=== PATIENT | female | born 1950 | race Caucasian/White ===

== ENCOUNTER 2016-08-15 07:32 | Emergency (ER) | payer MEDICARE, BC ==
[2016-08-15] MEDS ORDERED: Sodium Chloride 0.9% 10 ML Syringe FLUSH PRN (07:53)
[2016-08-15] MEDS ORDERED: Diltiazem 25 MG/5 ML SDV IVPUSH ONE ×2 (07:54→11:12)
[2016-08-15] MEDS: Sodium Chloride 0.9% 1,000 ML IV SCH ×2 (07:55→10:22)
--- NOTE | 2016-08-15 08:00 | EDM.PDOC ---
ED HISTORY OF PRESENT ILLNESS - General Chief Complaint: Cardiovascular Problem Stated Complaint: RAPID HEART RATE Time Seen by Provider: 08/15/16 07:52 Source: Reports: Patient History Limitations: Reports: No limitations - History of Present Illness INITIAL COMMENTS - FREE TEXT/NARRATIVE: This lady comes to the hospital complaining of a rapid heart rate and palpitations. This morning she was taking her usual morning thyroid medication and she got a little bit choked and it caused her to cough. Immediately afterward she noticed that her heart rate was going really fast. She denies any chest pain and there is no shortness of breath. She does not have a history of atrial flutter ablation or other heart problems although many years ago she had some episodes of flutters and had to wear a monitor but she said that her doctor told her that it was nothing to worry about and it seemed to go away. She has an underactive thyroid and the thyroid supplement is the only medication she takes. She has no reasons to be dehydrated such as vomiting or diarrhea. She doesn't use any [id number] medications no street drugs and no alcohol. - Related Data Allergies/ADRs: Allergies Allergy/AdvReac Type Severity Reaction Status Date / Time adhesive Allergy Itching Verified 08/15/16 07:36 Home Meds: Home Meds Aspirin [Ecotrin] 1 tab PO BEDTIME 08/15/16 [History] Calcium Carbonate [Calcium] 2 tab PO BID 08/15/16 [History] Ergocalciferol (Vitamin D2) [Vitamin D2] 1 tab PO DAILY 08/15/16 [History] Fish Oil/[place]-3 Fatty Acids [Fish Oil 1,000 MG] 1 tab PO DAILY 08/15/16 [ History] Lactobacillus Acidophilus [Probiotic] 1 tab PO BID 08/15/16 [History] Levothyroxine 1 tab PO DAILY 08/15/16 [History] Multivitamin [Multivitamins] 1 tab PO DAILY 08/15/16 [History] Ubiquinol 1 tab PO DAILY 08/15/16 [History] 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 GI Surgical History: Reports: Appendectomy Female Surgical History: Reports: section, Hysterectomy Musculoskeletal Surgical History: Reports: Knee replacement Social & Family History - Tobacco Use Smoking Status *Q: Never Smoker - Recreational Drug Use Recreational Drug Use: No ED ROS GENERAL - Review of Systems Review Of Systems: See Below Constitutional: Reports: no symptoms HEENT: Reports: No symptoms Respiratory: Reports: No Symptoms Cardiovascular: Reports: Palpitations Endocrine: Reports: no symptoms GI/Abdominal: Reports: No symptoms : Reports: no symptoms ED EXAM, GENERAL - Physical Exam Exam: See Below Exam Limited By: No limitations General Appearance: alert, no apparent distress, obese Eye Exam: bilateral eye: normal inspection Ears: normal external exam Throat/Mouth: Normal inspection Respiratory/Chest: no respiratory distress, lungs clear Cardiovascular: regular rate, rhythm, no murmur, tachycardia Peripheral Pulses: 1+: radial (L), radial (R) GI/Abdominal: non tender Extremities: no pedal edema Neurological: alert, oriented, normal cognition Psychiatric: normal affect Skin Exam: Warm, Dry Course - Vital Signs Last Recorded V/S: Last Vital Signs Temp 36.4 C 08/15/16 07:36 Pulse 78 08/15/16 15:21 Resp 15 08/15/16 11:40 BP 116/65 08/15/16 15:21 Pulse Ox 93 L 08/15/16 15:21 - Orders/Labs/Meds Orders: Active Orders 24 hr Category Date Time Status EKG Documentation Completion [RC] ASDIRECTED Care 08/15/16 07:53 Active EKG Documentation Completion [RC] ASDIRECTED Care 08/15/16 11:31 Active EKG Documentation Completion [RC] ASDIRECTED Care 08/15/16 15:39 Active Sodium Chloride 0.9% [Normal Saline] 1,000 ml Med 08/15/16 08:00 Active IV ASDIRECTED Sodium Chloride 0.9% [Saline Flush] Med 08/15/16 07:53 Active 10 ml FLUSH ASDIRECTED PRN Saline Lock Insert [OM.PC] Urgent Oth 08/15/16 07:52 Ordered EKG 12 Lead [EK] Routine Ther 08/15/16 15:38 Ordered EKG 12 Lead [EK] Urgent Ther 08/15/16 07:52 Ordered EKG 12 Lead [EK] Urgent Ther 08/15/16 11:31 Ordered Medication Orders Sodium Chloride (Normal Saline) 1,000 mls @ 500 mls/hr IV ASDIRECTED MARTHA Last Admin: 08/15/16 10:22 Dose: 500 mls/hr Infusion: 08/15/16 09:55 Dose: 500 mls/hr Admin: 08/15/16 07:55 Dose: 500 mls/hr Sodium Chloride (Saline Flush) 10 ml FLUSH ASDIRECTED PRN PRN Reason: Keep Vein Open Last Admin: 08/15/16 07:57 Dose: 10 ml Labs: Laboratory Tests 08/15/16 08/15/16 08/15/16 Range/Units 08:01 08:01 08:01 WBC 5.7 (4.5-11.0) K/uL RBC 5.24 (3.30-5.50) M/uL Hgb 15.5 H (12.0-15.0) g/dL Hct 45.4 (36.0-48.0) % MCV 87 (80-98) fL MCH 30 (27-31) pg MCHC 34 (32-36) % Plt Count 244 (150-400) K/uL Neut % (Auto) 64 (36-66) % Lymph % (Auto) 22 L (24-44) % [place] % (Auto) 11 H (2-6) % Eos % (Auto) 3 (2-4) % Baso % (Auto) 1 (0-1) % Sodium 143 (140-148) mmol/L Potassium 3.9 (3.6-5.2) mmol/L Chloride 106 (100-108) mmol/L Carbon Dioxide 28 (21-32) mmol/L Anion Gap 8.9 (5.0-14.0) mmol/L BUN 20 H (7-18) mg/dL Creatinine 0.9 (0.6-1.0) mg/dL Est Cr Clr Drug Dosing 56.00 mL/min Estimated GFR (MDRD) > 60 (>60) Glucose 126 H (74-106) mg/dL Calcium 9.3 (8.5-10.1) mg/dL Total Bilirubin 0.5 (0.2-1.0) mg/dL AST 17 (15-37) U/L ALT 25 (12-78) U/L Alkaline Phosphatase 61 (46-116) U/L Troponin I < 0.017 (0.000-0.056) ng/mL Total Protein 7.3 (6.4-8.2) g/dL Albumin 3.7 (3.4-5.0) g/dL Globulin 3.6 H (2.3-3.5) g/dL Albumin/Globulin Ratio 1.0 L (1.2-2.2) Free T4 1.58 H (0.76-1.46) ng/dL TSH, Ultra Sensitive 0.098 L (0.358-3.740) uIU/mL Meds: Medications Generic Name Dose Route Start Last Admin Trade Name Freq PRN Reason Stop Dose Admin Sodium Chloride 1,000 mls @ 500 mls/hr 08/15/16 08:00 08/15/16 10:22 Normal Saline IV 500 mls/hr ASDIRECTED MARTHA Administration Sodium Chloride 10 ml 08/15/16 07:53 08/15/16 07:57 Saline Flush FLUSH 10 ml ASDIRECTED PRN Administration Keep Vein Open Discontinued Medications Generic Name Dose Route Start Last Admin Trade Name Freq PRN Reason Stop Dose Admin Diltiazem HCl 25 mg 08/15/16 07:54 08/15/16 08:06 Diltiazem IVPUSH 08/15/16 07:55 25 mg ONETIME ONE Administration Diltiazem HCl 30 mg 08/15/16 09:48 08/15/16 09:54 Cardizem PO 08/15/16 09:49 30 mg ONETIME ONE Administration Diltiazem HCl 25 mg 08/15/16 11:12 08/15/16 11:18 Diltiazem IVPUSH 08/15/16 11:13 25 mg ONETIME ONE Administration Diltiazem HCl 30 mg 08/15/16 11:31 08/15/16 11:51 Cardizem PO 08/15/16 11:32 30 mg ONETIME ONE Administration Metoprolol Tartrate 5 mg 08/15/16 13:42 08/15/16 13:58 Lopressor IVPUSH 08/15/16 13:43 5 mg ONETIME ONE Administration Metoprolol Tartrate 5 mg 08/15/16 14:08 08/15/16 14:20 Lopressor IVPUSH 08/15/16 14:09 5 mg ONETIME ONE Administration - Re-Assessments/Exams Free Text/Narrative Re-Assessment/Exam: 08/15/16 07:59 Index initial EKG shows a narrow complex tachycardia at 145 beats per minute. It is regular and no P waves are seen. Free Text/Narrative Re-Assessment/Exam: 08/15/16 09:50 This lady received diltiazem 25 mg IV. The heart rate promptly slowed down to the 80-100 beats per minute range. It's clearly in atrial fibrillation. Repeat EKG confirms this. Labs show a slightly elevated T4 and a low TSH indicating an over abundance of the thyroid replacement hormone. I spoke with Dr. Sharp and he agrees with the plan to discharge her on some oral diltiazem. He will follow her up in clinic early next week and if she is still in atrial fibrillation then he will anticoagulate her and decide on further management. Dr. Sharp would like her Synthroid cut back to 100 mcg daily I discussed with the patient the side effects of diltiazem such as hypotension and bradycardia. If on the other hand she begins having more tachycardia and certainly if she had any chest pain or shortness of breath she needs to return to the emergency department 08/15/16 14:50 This patient had been given 30 mg of diltiazem at approximately 945. We observed her after this and eventually her heart rate went back up to about 150 so we gave her another 25 mg dose of IV diltiazem and another 30 of oral diltiazem. To continue to observe her but it looked like that was not going to work and her heart rate eventually went back up to about 150. Spoke with [address] Miller and he recommended that since this was probably due to her thyroid medication the metoprolol might be a better choice. Patient was given 25 mg IV doses and her heart rate slowed down into the 80s but we've subsequently noticed some pauses up to about 2 seconds so we're observing this and will make a decision on treating her with low-dose metoprolol outpatient or admitting her. 08/15/16 15:40 08/15/16 15:43 She converted to normal sinus rhythm. An EKG was done that shows sinus rhythm at 56 beats per minute. There is a loss of R-wave height on the 2 which was seen on the earlier EKGs today also. This could represent an old anteroseptal AK. There is nothing to suggest this is an acute AK. She had a troponin earlier today which was negative. I don't believe there is any need to do another troponin. Her vital signs are stable and I think she is ready to be discharged home. I don't believe there is any reason to send her out on any other medications. I spoke with her about checking her pulse and if she does note some increased heart rate and she should seek care either through her Dr. or return to the ER. She should plan to followup with Dr. Sharp next week as planned Departure - Departure Time of Disposition: 09:55 Disposition: Home, Self-Care 01 Condition: fair Clinical Impression: Atrial fibrillation with rapid ventricular response Referrals: Poli Sharp MD [Primary Care Provider] - Forms: ED Department Discharge Additional Instructions: Take the new lower dose of thyroid replacement, Synthroid or levothyroxine 100 mcg daily. If you notice your heart rate getting really fast again and certainly if you had chest pain or shortness of breath you need to be seen in the emergency room right away. Dr. Sharp would like to see you in clinic early next week. Your heart rhythm has converted to a normal sinus rhythm. Check pulse frequently it should be in the range of about 60-90. If you noticed it is getting well above 100 such as the 130 to 150 where it was today then you need to be seen in the ER again. - My Orders Last 24 Hours: My Active Orders 08/15/16 07:52 Saline Lock Insert [OM.PC] Urgent EKG 12 Lead [EK] Urgent 08/15/16 07:53 EKG Documentation Completion [RC] ASDIRECTED Sodium Chloride 0.9% [Saline Flush] 10 ml FLUSH ASDIRECTED PRN 08/15/16 08:00 Sodium Chloride 0.9% [Normal Saline] 1,000 ml IV ASDIRECTED 08/15/16 11:31 EKG Documentation Completion [RC] ASDIRECTED EKG 12 Lead [EK] Urgent 08/15/16 15:38 EKG 12 Lead [EK] Routine 08/15/16 15:39 EKG Documentation Completion [RC] ASDIRECTED - Assessment/Plan Last 24 Hours: My Active Orders 08/15/16 07:52 Saline Lock Insert [OM.PC] Urgent EKG 12 Lead [EK] Urgent 08/15/16 07:53 EKG Documentation Completion [RC] ASDIRECTED Sodium Chloride 0.9% [Saline Flush] 10 ml FLUSH ASDIRECTED PRN 08/15/16 08:00 Sodium Chloride 0.9% [Normal Saline] 1,000 ml IV ASDIRECTED 08/15/16 11:31 EKG Documentation Completion [RC] ASDIRECTED EKG 12 Lead [EK] Urgent 08/15/16 15:38 EKG 12 Lead [EK] Routine 08/15/16 15:39 EKG Documentation Completion [RC] ASDIRECTED
[2016-08-15] MEDS ORDERED: Diltiazem IR 30 MG Tab PO ONE ×2 (09:48→11:31)
--- NOTE | 2016-08-15 09:55 | CR ---
Chest 1V Frontal HISTORY: No Clinical Info FINDINGS: Heart size within normal limits. Pulmonary vasculature within normal limits. No evidence f or focal consolidation or cardiopulmonary process. IMPRESSION: No radiographic evidence for acute cardiopulmonary process.
[2016-08-15] MEDS ORDERED: Metoprolol Tartrate 5 MG/5 ML SDV IVPUSH ONE ×2 (13:42→14:08)
[2016-08-15 15:39] VITALS: BP 116/65
== END 2016-08-15 16:11 | disposition home or self-care (01) ==
LOC: JP.ED 07:32
DX: I48.91 Unspecified atrial fibrillation (principal); E03.9 Hypothyroidism, unspecified; Z90.49 Acquired absence of other specified parts of digestive tract; Z90.710 Acquired absence of both cervix and uterus; Z79.899 Other long term (current) drug therapy; Z91.09 Other allergy status, other than to drugs and biological substances; Z79.82 Long term (current) use of aspirin
CPT/HCPCS: 36415; 71010; 80053; 84439; 84443; 84484; 85025; 93005; 96361; 96374; 96375; 96376; 99284; A9270; J7040; J7050; 93010; 99285; J3490

== ENCOUNTER 2019-07-09 21:03 | Inpatient (IN) | payer MEDICARE, OTHER ==
[2019-07-09] MEDS ORDERED: Sodium Chloride 0.9% 10 ML Syringe FLUSH PRN (21:24)
[2019-07-09] MEDS ORDERED: Diltiazem 25 MG/5 ML SDV IVPUSH ONE ×2 (21:25→23:11)
--- NOTE | 2019-07-09 21:28 | EDM.PDOC ---
ED HPI GENERAL MEDICAL PROBLEM - General Chief Complaint: Cardiovascular Problem Stated Complaint: A-FIB Time Seen by Provider: 07/09/19 21:27 Source of Information: Reports: Patient History Limitations: Reports: No Limitations - History of Present Illness INITIAL COMMENTS - FREE TEXT/NARRATIVE: pt arrived in atrial fib with a rate in the 130 range. Onset: Today, Sudden Duration: Hour(s): Location: Reports: Chest Associated Symptoms: Reports: Shortness of Breath, Other (pt has no chest pain) - Related Data Allergies Allergy/AdvReac Type Severity Reaction Status Date / Time adhesive Allergy Itching Verified 07/09/19 21:22 Home Meds: Home Meds Aspirin [Ecotrin EC] 1 tab PO BEDTIME 08/15/16 [History] Calcium Carbonate [Calcium] 2 tab PO BID 08/15/16 [History] Ergocalciferol (Vitamin D2) [Vitamin D2] 1 tab PO DAILY 08/15/16 [History] Fish Oil/[place]-3 Fatty Acids [Fish Oil 1,000 MG] 1 tab PO DAILY 08/15/16 [ History] Lactobacillus Acidophilus [Probiotic] 1 tab PO BID 08/15/16 [History] Levothyroxine 1 tab PO DAILY 08/15/16 [History] Multivitamin [Multivitamins] 1 tab PO DAILY 08/15/16 [History] Ubiquinol 1 tab PO DAILY 08/15/16 [History] Metoprolol Tartrate 25 mg PO BID 07/09/19 [History] 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: Endocrine/Metabolic History: Reports: Hypothyroidism Oncologic (Cancer) History: Reports: Uterine - Past Surgical History HEENT Surgical History: Reports: Other (See Below) GI Surgical History: Reports: Appendectomy Female Surgical History: Reports: Section, Hysterectomy Musculoskeletal Surgical History: Reports: Knee Replacement ED ROS GENERAL - Review of Systems Review Of Systems: See Below Constitutional: Reports: No Symptoms HEENT: Reports: No Symptoms Respiratory: Reports: No Symptoms Cardiovascular: Reports: Palpitations Endocrine: Reports: No Symptoms GI/Abdominal: Reports: No Symptoms : Reports: No Symptoms Musculoskeletal: Reports: No Symptoms Skin: Reports: No Symptoms Neurological: Reports: No Symptoms Psychiatric: Reports: No Symptoms ED EXAM, GENERAL - Physical Exam Exam: See Below Free Text/Narrative:: pt arrived with a rapid rhythm in atrial fib. She has not had chest pain. She did have atrial fib mid Jun and ended up being hospitalized at that time. She was converted with meds. Exam Limited By: No Limitations General Appearance: Alert, No Apparent Distress, Anxious, Other (pt has had slight dizziness. ) Ears: Normal TMs Nose: Normal Inspection Throat/Mouth: Normal Inspection Head: Atraumatic Neck: Normal Inspection Respiratory/Chest: No Respiratory Distress Cardiovascular: Irregularly Irregular, Other ( rate is 140) GI/Abdominal: Soft, Non-Tender Rectal (Female) Exam: Deferred Back Exam: Normal Inspection Extremities: Normal Inspection Neurological: Alert, Oriented, Normal Cognition Course - Vital Signs Last Recorded V/S: Last Vital Signs Temp 36.2 C 07/10/19 08:00 Pulse 78 07/10/19 08:00 Resp 18 07/10/19 08:00 BP 107/68 07/10/19 08:00 Pulse Ox 91 L 07/10/19 08:00 - Orders/Labs/Meds Labs: Laboratory Tests 07/09/19 07/09/19 07/09/19 Range/Units 21:39 21:39 21:39 WBC 9.4 (4.5-11.0) K/uL RBC 5.27 (3.30-5.50) M/uL Hgb 15.5 H (12.0-15.0) g/dL Hct 47.1 (36.0-48.0) % MCV 89 (80-98) fL MCH 29 (27-31) pg MCHC 33 (32-36) % Plt Count 234 (150-400) K/uL Neut % (Auto) 62 (36-66) % Lymph % (Auto) 26 (24-44) % [place] % (Auto) 9 H (2-6) % Eos % (Auto) 2 (2-4) % Baso % (Auto) 0 (0-1) % Sodium 143 (140-148) mmol/L Potassium 4.0 (3.6-5.2) mmol/L Chloride 106 (100-108) mmol/L Carbon Dioxide 27 (21-32) mmol/L Anion Gap 10.3 (5.0-14.0) mmol/L BUN 23 H (7-18) mg/dL Creatinine 1.0 (0.6-1.0) mg/dL Est Cr Clr Drug Dosing 48.30 mL/min Estimated GFR (MDRD) 55 L (>60) Glucose 164 H (74-106) mg/dL Calcium 9.6 (8.5-10.1) mg/dL Total Bilirubin 0.3 (0.2-1.0) mg/dL AST 17 (15-37) U/L ALT 29 (12-78) U/L Alkaline Phosphatase 103 (46-116) U/L Troponin I < 0.017 (0.000-0.056) ng/mL Total Protein 7.5 (6.4-8.2) g/dL Albumin 3.7 (3.4-5.0) g/dL Globulin 3.8 H (2.3-3.5) g/dL Albumin/Globulin Ratio 1.0 L (1.2-2.2) TSH, Ultra Sensitive (0.358-3.740) uIU/mL Urine Color (YELLOW) Urine Appearance (CLEAR) Urine pH (5.0-8.0) Ur Specific [place] (1.008-1.030) Urine Protein (NEGATIVE) mg/dL Urine Glucose (UA) (NEGATIVE) mg/dL Urine Ketones (NEGATIVE) mg/dL Urine Occult Blood (NEGATIVE) Urine Nitrite (NEGATIVE) Urine Bilirubin (NEGATIVE) Urine Urobilinogen (0.2-1.0) EU/dL Ur Leukocyte Esterase (NEGATIVE) Urine RBC (0-5) Urine WBC (0-5) Ur Epithelial Cells Amorphous Sediment Urine Bacteria Urine Mucus 07/09/19 07/09/19 Range/Units 21:39 22:56 WBC (4.5-11.0) K/uL RBC (3.30-5.50) M/uL Hgb (12.0-15.0) g/dL Hct (36.0-48.0) % MCV (80-98) fL MCH (27-31) pg MCHC (32-36) % Plt Count (150-400) K/uL Neut % (Auto) (36-66) % Lymph % (Auto) (24-44) % [place] % (Auto) (2-6) % Eos % (Auto) (2-4) % Baso % (Auto) (0-1) % Sodium (140-148) mmol/L Potassium (3.6-5.2) mmol/L Chloride (100-108) mmol/L Carbon Dioxide (21-32) mmol/L Anion Gap (5.0-14.0) mmol/L BUN (7-18) mg/dL Creatinine (0.6-1.0) mg/dL Est Cr Clr Drug Dosing mL/min Estimated GFR (MDRD) (>60) Glucose (74-106) mg/dL Calcium (8.5-10.1) mg/dL Total Bilirubin (0.2-1.0) mg/dL AST (15-37) U/L ALT (12-78) U/L Alkaline Phosphatase (46-116) U/L Troponin I (0.000-0.056) ng/mL Total Protein (6.4-8.2) g/dL Albumin (3.4-5.0) g/dL Globulin (2.3-3.5) g/dL Albumin/Globulin Ratio (1.2-2.2) TSH, Ultra Sensitive 0.998 (0.358-3.740) uIU/mL Urine Color Yellow (YELLOW) Urine Appearance Clear (CLEAR) Urine pH 7.5 (5.0-8.0) Ur Specific [place] 1.020 (1.008-1.030) Urine Protein Negative (NEGATIVE) mg/dL Urine Glucose (UA) Negative (NEGATIVE) mg/dL Urine Ketones Negative (NEGATIVE) mg/dL Urine Occult Blood Negative (NEGATIVE) Urine Nitrite Negative (NEGATIVE) Urine Bilirubin Negative (NEGATIVE) Urine Urobilinogen 0.2 (0.2-1.0) EU/dL Ur Leukocyte Esterase Negative (NEGATIVE) Urine RBC 0-5 (0-5) Urine WBC 0-5 (0-5) Ur Epithelial Cells Rare Amorphous Sediment Not seen Urine Bacteria Rare Urine Mucus Not seen Meds: Medications Discontinued Medications Generic Name Dose Route Start Last Admin Trade Name Freq PRN Reason Stop Dose Admin Acetaminophen 650 mg 07/09/19 23:50 Tylenol PO Q4H PRN Pain Apixaban 5 mg 07/10/19 09:00 Eliquis PO BID MARTHA Aspirin 81 mg 07/10/19 21:00 Halfprin PO BEDTIME MARTHA Diltiazem HCl 10 mg 07/09/19 21:25 07/09/19 21:41 Diltiazem IVPUSH 07/09/19 21:26 10 mg ONETIME ONE Administration Diltiazem HCl 10 mg 07/09/19 23:11 07/09/19 23:16 Diltiazem IVPUSH 07/09/19 23:12 10 mg ONETIME ONE Administration Diltiazem HCl 100 mg/ Sodium 100 mls @ 5 mls/hr 07/09/19 21:30 07/10/19 02:10 Chloride IV 7 mg/hr TITRATE MARTHA 7 mls/hr Titration Protocol 5 MG/HR Levothyroxine Sodium 100 mcg 07/10/19 07:30 07/10/19 09:12 Synthroid PO 100 mcg ACBREAKFAST MARTHA Administration Levothyroxine Sodium 25 mcg 07/10/19 07:30 07/10/19 09:12 Levothyroxine PO 25 mcg ACBREAKFAST MARTHA Administration Metoprolol Tartrate 25 mg 07/10/19 09:00 07/10/19 09:14 Lopressor PO Not Given BID MARTHA Propofol Confirm 07/10/19 08:54 Diprivan 20 Ml Administered 07/10/19 08:55 Dose 200 mg .ROUTE .STK-MED ONE Sodium Chloride 10 ml 07/09/19 21:24 07/09/19 21:45 Saline Flush FLUSH 10 ml ASDIRECTED PRN Administration Keep Vein Open Warfarin Sodium 5 mg 07/09/19 22:36 07/09/19 22:54 Coumadin PO 07/09/19 22:37 Not Given ONETIME ONE - Re-Assessments/Exams Free Text/Narrative Re-Assessment/Exam: 07/09/19 22:24 pt has normal labs and she has a chest xray which has no acute changes. Her bs is 164. She was given cardizem 10 mg iv and then a drip was started. Her rate has come down to 110 instead of 130. Departure - Departure Time of Disposition: 22:26 Disposition: Admitted As Inpatient 64 Condition: Fair Clinical Impression: Atrial fibrillation with rapid ventricular response Sepsis Event Note - Focused Exam Date Exam was Performed: 07/11/19 Time Exam was Performed: 07:24
[2019-07-09] MEDS ORDERED: Diltiazem 100 MG in Sodium Chloride 0.9% 100 ML IV SCH (21:30)
[2019-07-09] MEDS ORDERED: Warfarin 5 MG Tab PO ONE (22:36)
[2019-07-09] MEDS ORDERED: Acetaminophen 325 MG Tab PO PRN (23:50)
--- NOTE | 2019-07-10 01:39 | HP ---
IDENTIFYING DATA: Sammy Acharya is a 69-year-old female from [facility]. CHIEF COMPLAINT: Atrial fibrillation. HISTORY OF PRESENT ILLNESS: This adult female with a history of hypertension has an accompanying history of recognized intermittent paroxysmal atrial fibrillation with rapid ventricular response. She was hospitalized for a brief stay at [facility] in [place] 2 weeks ago with similar episode converting with pharmacologic therapies and subsequently being discharged to home. She had a 2nd episode in the remote past, converting back to a presumptive normal sinus rhythm spontaneously. She has had no history of syncope or near syncope. Denies loss of consciousness. No history of ME, chest pain, or angina-like pain. She reports she was seated on the couch this evening folding laundry when she suddenly noted the onset of irregular cardiac palpitations suspecting atrial fibrillation. Her transported her to the emergency room. Again, she has had no dizziness, lightheadedness, syncope, near syncope, chest pain, or shortness of breath. She is a nonsmoker. Uses no alcohol or caffeinated beverages. No other stimulant therapy noted. She does have a history of hypothyroidism with recent TSH noted to be within normal range on levothyroxine replacement therapy. She uses no [id number] stimulants including decongestant agents. She did have an echocardiogram completed earlier this week for completion of evaluation of her recent episode of AFib. She was noted to have normal cardiac valve function, mild concentric hypertrophy of the left ventricle with a well- maintained ejection fraction. She had no reports of atrial enlargement noted. She is currently on aspirin, anti-platelet therapies. She is not on additional anticoagulant therapy. PAST MEDICAL HISTORY: History of hypertension, hypothyroidism, and intermittent atrial fibrillation. PREVIOUS SURGERIES: Include delivery, total knee arthroplasty, hysterectomy, and appendectomy in the remote past. ALLERGIES: NOTED TO ADHESIVE TAPE. MEDICATIONS: Metoprolol tartrate 25 mg b.i.d., multivitamin 1 daily, digestive enzymes 1 capsule daily, levothyroxine 137 mcg daily, aspirin 81 mg daily, Ubiquinol 100 mg daily, omega-3 fatty fish oil capsule 1200 mg daily, calcium 500 mg with vitamin D 125 units 2 tablets daily, probiotics 1 capsule b.i.d. Has received her annual influenza vaccine. Tetanus status is current and up to date. FAMILY HISTORY: No familial history of similar rhythm occurrence. SOCIAL HISTORY: Resides with her in their [place] [facility] residence. She engages in light physical activity with use of a treadmill on a daily basis. Engages in household activities. Performs ADLs independently. Drives without difficulty. REVIEW OF SYSTEMS: NEUROLOGIC: No history of stroke, seizures, or paresthesias. No history of glaucoma. Hearing is intact. CARDIAC: As above. RESPIRATORY: No history of asthma, emphysema, cough, sputum production, tuberculosis, or recent URIs. GI: No history of hepatitis, jaundice, chronic dyspepsia, nausea, emesis, or bowel changes. : No urinary incontinence. No nocturia noted by the patient. MUSCULOSKELETAL: Arthralgias with shoulder pain of rotator cuff disease and degenerative arthritis of the knees. PHYSICAL EXAMINATION: GENERAL: Appearance is that of an adult female, now resting comfortably in hospital bed. INITIAL VITALS: Temperature 36.2 degrees centigrade, pulse 142 with atrial fibrillation and rapid ventricular rate noted by cardiac monitoring, respiratory rate 18, blood pressure 152/75, O2 sats 94% on room air. With initiation of IV diltiazem, heart rate has slowed to 90s to 105 with persistent atrial fibrillation. HEENT: Pupils reactive to light. Sclerae anicteric. Hearing is grossly intact with normal canals. No facial asymmetries. No oropharyngeal lesions. No perioral cyanosis. NECK: Brisk irregular carotid pulses. No JVD or bruits. LUNGS: Symmetrical, clear, nontachypneic. HEART: Irregularly irregular, controlled rate. No murmurs or gallops noted. ABDOMEN: Obese, soft, and nontender. No organomegaly. Active sounds. Good femoral pulses. No bruits. No CVA pain. EXTREMITIES: Chronic mild pitting edema of the lower extremities. Good arterial pulses. SKIN: Warm, pink, and dry. LABORATORY DATA: On admission, WBC 9.4, hemoglobin 15.5, platelet count 234,000. Sodium 143, potassium 4, BUN 23, creatinine 1, GFR 55. Glucose 164, calcium 9.6. Liver functions within normal range. Troponin less than 0.017. TSH within therapeutic range at 0.998. IMPRESSION: 1. Paroxysmal atrial fibrillation with rapid ventricular rate. 2. History of hypertension. 3. History of hypothyroidism with levothyroxine replacement therapy. PLAN: The patient will be admitted to the ICU for continued cardiac monitoring. We will maintain on oral metoprolol and IV diltiazem drip initiated in the emergency room. Additionally, will initiate anticoagulant therapy with oral Eliquis while continuing with aspirin, antiplatelet therapies as well. A.m. troponin is requested. If she has evidence of ischemic chest pain or decompensation with suggestion of acute congestive heart failure, will treat aggressively with cardioversion. If she fails to convert with pharmacologic therapies overnight, consider consult for cardioversion on 07/10/2019. We will continue with long-term anticoagulant therapy. Additionally, in light of recurring AFib, also will pursue Cardiology consultation to discuss optimal management of recurrent AFib, be it ongoing pharmacologic therapy or EP studies and cardioablative procedure. Riley Sharp MD /[id number]
--- NOTE | 2019-07-10 06:41 | PN ---
DATE OF SERVICE: 07/10/2019 IDENTIFYING DATA: A 69-year-old female with a history of paroxysmal atrial fibrillation, was admitted in the late evening hours with recurrent cardiac dysrhythmia, noting subjective palpitations. Initial rates in the 130s with variable rhythm were identified. Additional ER evaluation was otherwise unremarkable. She has had no chest pain, no syncope, dizziness, or shortness of breath. In addition to her standard maintenance oral metoprolol, she was placed on IV diltiazem and admitted to the ICU overnight for ongoing observation. She has not slept. Denies discomfort with the exception of transient aching at the left shoulder, noting a history of a rotator cuff tear. She is now comfortable. No shortness of breath noted. OBJECTIVE: VITAL SIGNS: Heart rate varies from 70s to 120s with irregularity and atrial fibrillation noted by monitoring, respiratory rate 15, O2 sats 93% with supplemental oxygen at 1 L, blood pressure 118/54. NECK: Brisk and regular carotid pulses. No stridor. LUNGS: Clear. HEART: Remains irregularly irregular. No murmurs or gallops noted. EXTREMITIES: Warm, pink, and dry. IMPRESSION AND PLAN: Paroxysmal atrial fibrillation, persistently maintained regular cardiac dysrhythmia. We will continue with IV diltiazem and oral metoprolol. Anticoagulation with Eliquis has been ordered. Followup troponin this morning is pending. We will consult Hospitalist Service to discuss candidacy for cardioversion and then discuss further patient's outpatient arrangements for Cardiology followup and consultation to review possible candidacy for EP studies and cardio-ablative procedure. Continue to monitor in ICU setting in the interim. Riley Sharp MD /[id number]
[2019-07-10] MEDS ORDERED: Levothyroxine 100 MCG Tab PO SCH (07:30)
[2019-07-10] MEDS ORDERED: Levothyroxine 25 MCG Tab PO SCH (07:30)
[2019-07-10 08:28] VITALS: BP 107/68; PULSE 78
[2019-07-10] MEDS ORDERED: Propofol 200 MG/20 ML SDV ONE (08:54)
[2019-07-10] MEDS ORDERED: LEVOTHYROXINE PO SCH (09:00)
[2019-07-10] MEDS ORDERED: Apixaban 5 MG Tab PO SCH (09:00)
[2019-07-10] MEDS ORDERED: Metoprolol Tartrate 25 MG Tab PO SCH (09:00)
--- NOTE | 2019-07-10 09:29 | PCM.DCSUM1 ---
Discharge Summary - Hospital Course Brief History: Ms. Acharya is a 69-year-old woman who was admitted through the emergency department with palpitations secondary to atrial fibrillation with rapid ventricular response. - Discharge Data Discharge Date: 07/10/19 Discharge Disposition: Home, Self-Care 01 Condition: Stable - Referral to Home Health Primary Care Physician: Poli Sharp MD - Discharge Diagnosis/Problem(s) (1) Hypertension SNOMED Code(s): 47448494 ICD Code: I10 - ESSENTIAL (PRIMARY) HYPERTENSION Status: Acute Current Visit: Yes (2) Atrial fibrillation with rapid ventricular response SNOMED Code(s): 536673971369217 ICD Code: I48.91 - UNSPECIFIED ATRIAL FIBRILLATION Status: Acute Current Visit: Yes - Patient Summary/Data Hospital Course: Ms. Acharya is a 69-year-old woman who was admitted through the emergency department by Dr. Sharp with palpitations secondary to atrial fibrillation with rapid ventricular response. She has had a previous episode of atrial fibrillation with rapid ventricular response 2 to 3 weeks ago and 1 previous episode occurring approximately 2 years ago. During the last episode she converted spontaneously to sinus rhythm. She was sitting on the couch when she noted onset of a rapid irregular rhythm and was brought into the emergency department by her . EKG and telemetry monitoring confirmed atrial fibrillation with rapid ventricular response. She was given a bolus dose of IV diltiazem and started on a continuous infusion of IV diltiazem. With these interventions rate became well controlled. Initial troponin level and follow- up troponin level have been within normal range. She had no associated symptoms with the atrial fibrillation other than noted the rapid rhythm. She had converted spontaneously this morning to sinus rhythm. She has a calculated [id number] score of 3. We discussed the recommendation for anticoagulation today did recommend that she begin anticoagulation. She stands that she is at increased risk for stroke based on her chads score, but would like to wait until she sees the rail car operator to discuss this further. TSH level is within normal range, echocardiogram was obtained as an outpatient yesterday and the results are pending at this time. Activity will be as tolerated and she will remain on a heart healthy diet. Follow-up appointment will be scheduled with Dr. Sharp in 1 week. She reports to me that she does have a pending appointment with cardiology. - Patient Instructions Diet: Heart Healthy Diet Activity: As Tolerated Other/Special Instructions: Please schedule follow-up appointment with primary care provider within 1 week. - Discharge Plan *PRESCRIPTION DRUG MONITORING PROGRAM REVIEWED*: Not Applicable *COPY OF PRESCRIPTION DRUG MONITORING REPORT IN PATIENT CRISTIAN: Not Applicable Home Medications: Home Meds Aspirin [Ecotrin EC] 1 tab PO BEDTIME 08/15/16 [History] Calcium Carbonate [Calcium] 2 tab PO BID 08/15/16 [History] Ergocalciferol (Vitamin D2) [Vitamin D2] 1 tab PO DAILY 08/15/16 [History] Fish Oil/[place]-3 Fatty Acids [Fish Oil 1,000 MG] 1 tab PO DAILY 08/15/16 [ History] Lactobacillus Acidophilus [Probiotic] 1 tab PO BID 08/15/16 [History] Levothyroxine 1 tab PO DAILY 08/15/16 [History] Multivitamin [Multivitamins] 1 tab PO DAILY 08/15/16 [History] Ubiquinol 1 tab PO DAILY 08/15/16 [History] Metoprolol Tartrate 25 mg PO BID 07/09/19 [History] Referrals: Poli Sharp MD [Primary Care Provider] - - Discharge Summary/Plan Comment DC Time >30 min.: No - Patient Data Vitals - Most Recent: Last Vital Signs Temp 97.2 F 07/10/19 08:00 Pulse 78 07/10/19 08:00 Resp 18 07/10/19 08:00 BP 107/68 07/10/19 08:00 Pulse Ox 91 L 07/10/19 08:00 Weight - Most Recent: 261 lb I&O - Last 24 hours: Intake & Output 07/09/19 07/10/19 07/10/19 22:59 06:59 14:59 Intake Total 506 Output Total 225 Balance 281 Lab Results - Last 24 hrs: Laboratory Results - last 24 hr 07/09/19 07/09/19 07/09/19 Range/Units 21:39 21:39 21:39 WBC 9.4 (4.5-11.0) K/uL RBC 5.27 (3.30-5.50) M/uL Hgb 15.5 H (12.0-15.0) g/dL Hct 47.1 (36.0-48.0) % MCV 89 (80-98) fL MCH 29 (27-31) pg MCHC 33 (32-36) % Plt Count 234 (150-400) K/uL Neut % (Auto) 62 (36-66) % Lymph % (Auto) 26 (24-44) % [place] % (Auto) 9 H (2-6) % Eos % (Auto) 2 (2-4) % Baso % (Auto) 0 (0-1) % Sodium 143 (140-148) mmol/L Potassium 4.0 (3.6-5.2) mmol/L Chloride 106 (100-108) mmol/L Carbon Dioxide 27 (21-32) mmol/L Anion Gap 10.3 (5.0-14.0) mmol/L BUN 23 H (7-18) mg/dL Creatinine 1.0 (0.6-1.0) mg/dL Est Cr Clr Drug Dosing 48.30 mL/min Estimated GFR (MDRD) 55 L (>60) Glucose 164 H (74-106) mg/dL Calcium 9.6 (8.5-10.1) mg/dL Magnesium (1.8-2.4) mg/dL Total Bilirubin 0.3 (0.2-1.0) mg/dL AST 17 (15-37) U/L ALT 29 (12-78) U/L Alkaline Phosphatase 103 (46-116) U/L Troponin I < 0.017 (0.000-0.056) ng/mL Total Protein 7.5 (6.4-8.2) g/dL Albumin 3.7 (3.4-5.0) g/dL Globulin 3.8 H (2.3-3.5) g/dL Albumin/Globulin Ratio 1.0 L (1.2-2.2) TSH, Ultra Sensitive (0.358-3.740) uIU/mL Urine Color (YELLOW) Urine Appearance (CLEAR) Urine pH (5.0-8.0) Ur Specific [place] (1.008-1.030) Urine Protein (NEGATIVE) mg/dL Urine Glucose (UA) (NEGATIVE) mg/dL Urine Ketones (NEGATIVE) mg/dL Urine Occult Blood (NEGATIVE) Urine Nitrite (NEGATIVE) Urine Bilirubin (NEGATIVE) Urine Urobilinogen (0.2-1.0) EU/dL Ur Leukocyte Esterase (NEGATIVE) Urine RBC (0-5) Urine WBC (0-5) Ur Epithelial Cells Amorphous Sediment Urine Bacteria Urine Mucus 07/09/19 07/09/19 07/10/19 Range/Units 21:39 22:56 06:02 WBC (4.5-11.0) K/uL RBC (3.30-5.50) M/uL Hgb (12.0-15.0) g/dL Hct (36.0-48.0) % MCV (80-98) fL MCH (27-31) pg MCHC (32-36) % Plt Count (150-400) K/uL Neut % (Auto) (36-66) % Lymph % (Auto) (24-44) % [place] % (Auto) (2-6) % Eos % (Auto) (2-4) % Baso % (Auto) (0-1) % Sodium (140-148) mmol/L Potassium (3.6-5.2) mmol/L Chloride (100-108) mmol/L Carbon Dioxide (21-32) mmol/L Anion Gap (5.0-14.0) mmol/L BUN (7-18) mg/dL Creatinine (0.6-1.0) mg/dL Est Cr Clr Drug Dosing mL/min Estimated GFR (MDRD) (>60) Glucose (74-106) mg/dL Calcium (8.5-10.1) mg/dL Magnesium (1.8-2.4) mg/dL Total Bilirubin (0.2-1.0) mg/dL AST (15-37) U/L ALT (12-78) U/L Alkaline Phosphatase (46-116) U/L Troponin I < 0.017 (0.000-0.056) ng/mL Total Protein (6.4-8.2) g/dL Albumin (3.4-5.0) g/dL Globulin (2.3-3.5) g/dL Albumin/Globulin Ratio (1.2-2.2) TSH, Ultra Sensitive 0.998 (0.358-3.740) uIU/mL Urine Color Yellow (YELLOW) Urine Appearance Clear (CLEAR) Urine pH 7.5 (5.0-8.0) Ur Specific [place] 1.020 (1.008-1.030) Urine Protein Negative (NEGATIVE) mg/dL Urine Glucose (UA) Negative (NEGATIVE) mg/dL Urine Ketones Negative (NEGATIVE) mg/dL Urine Occult Blood Negative (NEGATIVE) Urine Nitrite Negative (NEGATIVE) Urine Bilirubin Negative (NEGATIVE) Urine Urobilinogen 0.2 (0.2-1.0) EU/dL Ur Leukocyte Esterase Negative (NEGATIVE) Urine RBC 0-5 (0-5) Urine WBC 0-5 (0-5) Ur Epithelial Cells Rare Amorphous Sediment Not seen Urine Bacteria Rare Urine Mucus Not seen 07/10/19 Range/Units 08:36 WBC (4.5-11.0) K/uL RBC (3.30-5.50) M/uL Hgb (12.0-15.0) g/dL Hct (36.0-48.0) % MCV (80-98) fL MCH (27-31) pg MCHC (32-36) % Plt Count (150-400) K/uL Neut % (Auto) (36-66) % Lymph % (Auto) (24-44) % [place] % (Auto) (2-6) % Eos % (Auto) (2-4) % Baso % (Auto) (0-1) % Sodium (140-148) mmol/L Potassium (3.6-5.2) mmol/L Chloride (100-108) mmol/L Carbon Dioxide (21-32) mmol/L Anion Gap (5.0-14.0) mmol/L BUN (7-18) mg/dL Creatinine (0.6-1.0) mg/dL Est Cr Clr Drug Dosing mL/min Estimated GFR (MDRD) (>60) Glucose (74-106) mg/dL Calcium (8.5-10.1) mg/dL Magnesium 1.9 (1.8-2.4) mg/dL Total Bilirubin (0.2-1.0) mg/dL AST (15-37) U/L ALT (12-78) U/L Alkaline Phosphatase (46-116) U/L Troponin I (0.000-0.056) ng/mL Total Protein (6.4-8.2) g/dL Albumin (3.4-5.0) g/dL Globulin (2.3-3.5) g/dL Albumin/Globulin Ratio (1.2-2.2) TSH, Ultra Sensitive (0.358-3.740) uIU/mL Urine Color (YELLOW) Urine Appearance (CLEAR) Urine pH (5.0-8.0) Ur Specific [place] (1.008-1.030) Urine Protein (NEGATIVE) mg/dL Urine Glucose (UA) (NEGATIVE) mg/dL Urine Ketones (NEGATIVE) mg/dL Urine Occult Blood (NEGATIVE) Urine Nitrite (NEGATIVE) Urine Bilirubin (NEGATIVE) Urine Urobilinogen (0.2-1.0) EU/dL Ur Leukocyte Esterase (NEGATIVE) Urine RBC (0-5) Urine WBC (0-5) Ur Epithelial Cells Amorphous Sediment Urine Bacteria Urine Mucus Med Orders - Current: Current Medications Acetaminophen (Tylenol) 650 mg PO Q4H PRN PRN Reason: Pain Aspirin (Halfprin) 81 mg PO BEDTIME [facility] Levothyroxine Sodium (Synthroid) 100 mcg PO ACBREAKFAST MARTHA Last Admin: 07/10/19 09:12 Dose: 100 mcg Levothyroxine Sodium (Levothyroxine) 25 mcg PO ACBREAKFAST MARTHA Last Admin: 07/10/19 09:12 Dose: 25 mcg Metoprolol Tartrate (Lopressor) 25 mg PO BID [facility] Last Admin: 07/10/19 09:14 Dose: Not Given Sodium Chloride (Saline Flush) 10 ml FLUSH ASDIRECTED PRN PRN Reason: Keep Vein Open Last Admin: 07/09/19 21:45 Dose: 10 ml Discontinued Medications Apixaban (Eliquis) 5 mg PO BID [facility] Diltiazem HCl (Diltiazem) 10 mg IVPUSH ONETIME ONE Stop: 07/09/19 21:26 Last Admin: 07/09/19 21:41 Dose: 10 mg Diltiazem HCl (Diltiazem) 10 mg IVPUSH ONETIME ONE Stop: 07/09/19 23:12 Last Admin: 07/09/19 23:16 Dose: 10 mg Diltiazem HCl 100 mg/ Sodium (Chloride) 100 mls @ 5 mls/hr IV TITRATE MARTHA; Protocol Last Titration: 07/10/19 02:10 Dose: 7 mg/hr, 7 mls/hr Propofol (Diprivan 20 Ml) Confirm Administered Dose 200 mg .ROUTE .STK-MED ONE Stop: 07/10/19 08:55 Warfarin Sodium (Coumadin) 5 mg PO ONETIME ONE Stop: 07/09/19 22:37 Last Admin: 07/09/19 22:54 Dose: Not Given - Exam General: Reports: Alert, Oriented, Cooperative, No Acute Distress Lungs: Reports: Clear to Auscultation, Normal Respiratory Effort Cardiovascular: Reports: Regular Rate, Regular Rhythm, No Murmurs GI/Abdominal Exam: Soft, Non-Tender, No Organomegaly, No Distention
[2019-07-10] MEDS ORDERED: Aspirin 81 MG Tab.EC PO SCH (21:00)
--- NOTE | 2019-07-12 08:53 | CR ---
CHEST: Portable 07/09/2019 at 10:12 PM CLINICAL HISTORY:Atrial fib COMPARISON:2017 FINDINGS: The heart size, pulmonary vascular and hilar structures are normal. No infiltrate effusion or pneumothorax is seen. IMPRESSION: No acute cardiopulmonary process
== END 2019-07-10 10:48 | disposition home or self-care (01) | DRG 310 ==
LOC: JP.ED 21:03 → JP.ICU 23:26
PROVIDERS: ADMIT Family Medicine; ATTEND Hospitalist
DX: I48.91 Unspecified atrial fibrillation (principal); I48.0 Paroxysmal atrial fibrillation; Z85.42 Personal history of malignant neoplasm of other parts of uterus; Z96.659 Presence of unspecified artificial knee joint; I10 Essential (primary) hypertension; Z91.048 Other nonmedicinal substance allergy status; E03.9 Hypothyroidism, unspecified; Z79.82 Long term (current) use of aspirin; Z79.02 Long term (current) use of antithrombotics/antiplatelets; Z90.710 Acquired absence of both cervix and uterus; Z90.49 Acquired absence of other specified parts of digestive tract; Z79.899 Other long term (current) drug therapy; Z79.890 Hormone replacement therapy
CPT/HCPCS: 36415; 71045; 80053; 81001; 84443; 84484; 85025; 93005; J3490 ×3; J7050; 83735; 93010; 96374; 96376; 99284; 99285-25; A9270-GY; J2704

== ENCOUNTER 2019-09-01 22:19 | Inpatient (IN) | payer MEDICARE, OTHER ==
--- NOTE | 2019-09-01 23:01 | EDM.PDOC ---
ED HPI GENERAL MEDICAL PROBLEM - General Chief Complaint: Cardiovascular Problem Stated Complaint: A-FIB? Time Seen by Provider: 09/01/19 22:35 Source of Information: Reports: Patient, Old Records, RN History Limitations: Reports: No Limitations - History of Present Illness INITIAL COMMENTS - FREE TEXT/NARRATIVE: 69 yo female with intermittent afib and who is on Eliquis presents with nearly 90 min of a rapid and irregular heart rhythm. Is on metoprolol 37.5 mg bid and is not sure what her heart rate is when not in afib. Denies any chest pain or SOB. Has met with cardiology and an ablation has been discussed. Her last episode of afib was just over a month ago. Has a hx of thyroid dz, her TSH was normal 7 weeks ago. Onset: Today, Sudden Onset Date: 09/01/19 Onset Time: 21:30 Duration: Minutes: (90), Constant Location: Reports: Chest Quality: Reports: Other (no pain) Severity: Mild Improves with: Reports: None Worsens with: Reports: Other (unknown) Context: Reports: Other (See HPI) Associated Symptoms: Reports: No Other Symptoms. 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 (see below) (none) - Related Data Allergies Allergy/AdvReac Type Severity Reaction Status Date / Time adhesive Allergy Itching Verified 09/01/19 22:37 Home Meds: Home Meds Fish Oil/[place]-3 Fatty Acids [Fish Oil 1,000 MG] 1 tab PO DAILY 08/15/16 [ History] Lactobacillus Acidophilus [Probiotic] 1 tab PO DAILY 08/15/16 [History] Multivitamin [Multivitamins] 1 tab PO BID 08/15/16 [History] Ubiquinol 1 tab PO DAILY 08/15/16 [History] Metoprolol Tartrate 37 mg PO BID 07/09/19 [History] Apixaban [Eliquis] 5 mg PO BID 09/01/19 [History] Biotin 5 mg PO DAILY 09/01/19 [History] Calcium Carb, Citrate/Vit D3 [Calcium + D3 ER Tablet] 1 tab PO BID 09/01/19 [ History] Levothyroxine Sodium 1 tab PO DAILY 09/01/19 [History] Past Medical History Cardiovascular History: Reports: Afib, Other (See Below) Other Cardiovascular History: 3rd episode since 2017 [employer]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: Endocrine/Metabolic History: Reports: Hypothyroidism Other Endocrine/Metabolic History: checks blood sugars for pre diabetes Oncologic (Cancer) History: Reports: Uterine - Past Surgical History HEENT Surgical History: Reports: Other (See Below) GI Surgical History: Reports: Appendectomy Female Surgical History: Reports: Section, Hysterectomy Musculoskeletal Surgical History: Reports: Knee Replacement Social & Family History - Family History Family Medical History: Noncontributory - Tobacco Use Smoking Status *Q: Never Smoker - Caffeine Use Caffeine Use: Reports: None ED ROS GENERAL - Review of Systems Review Of Systems: See Below Constitutional: Reports: No Symptoms HEENT: Reports: No Symptoms Respiratory: Reports: No Symptoms Cardiovascular: Reports: Palpitations GI/Abdominal: Reports: No Symptoms : Reports: No Symptoms Musculoskeletal: Reports: No Symptoms Skin: Reports: No Symptoms Neurological: Reports: No Symptoms ED EXAM, GENERAL - Physical Exam Exam: See Below Exam Limited By: No Limitations General Appearance: Alert, WD/WN, No Apparent Distress Eye Exam: Bilateral Eye: Normal Inspection Ears: Normal External Exam, Normal Canal, Hearing Grossly Normal, Normal TMs Ear Exam: Bilateral Ear: Auricle Normal, Canal Normal Nose: Normal Inspection, No Blood Throat/Mouth: Normal Inspection, Normal Lips, Normal Oropharynx, Normal Voice, No Airway Compromise Head: Atraumatic, Normocephalic Neck: Normal Inspection Respiratory/Chest: No Respiratory Distress, Lungs Clear, Normal Breath Sounds, No Accessory Muscle Use Cardiovascular: No Edema, Tachycardia, Irregularly Irregular GI/Abdominal: Normal Bowel Sounds, Soft, Non-Tender, No Distention Back Exam: Normal Inspection. No: CVA Tenderness (R), CVA Tenderness (L) Extremities: Normal Inspection, Normal Range of Motion, Non-Tender, No Pedal Edema Neurological: Alert, Oriented, CN II-XII Intact, Normal Cognition, No Motor/ Sensory Deficits Psychiatric: Normal Affect, Normal Mood Skin Exam: Warm, Dry, Intact, Normal Color, No Rash Course - Vital Signs Text/Narrative:: Dr. Kaur called @ 4504h. Last Recorded V/S: Last Vital Signs Temp 36.3 C 09/01/19 22:49 Pulse 151 H 09/01/19 22:50 Resp 24 H 09/01/19 22:50 BP 139/81 09/01/19 22:50 Pulse Ox 94 L 09/01/19 22:50 - Orders/Labs/Meds Orders: Active Orders 24 hr Category Date Time Status Patient Status Manage Transfer [TRANSFER] Routine ADT 09/02/19 00:32 Active Cardiac Monitoring [RC] .As Directed Care 09/01/19 22:37 Active Diltiazem [Cardizem] 100 mg Med 09/02/19 00:45 Active Sodium Chloride 0.9% [Normal Saline] 100 ml IV TITRATE Sodium Chloride 0.9% [Normal Saline] 1,000 ml Med 09/01/19 23:15 Active IV ASDIRECTED Sodium Chloride 0.9% [Saline Flush] Med 09/01/19 22:53 Active 10 ml FLUSH ASDIRECTED PRN Saline Lock Insert [OM.PC] Routine Oth 09/01/19 22:53 Ordered Resuscitation Status Routine Resus Stat 09/02/19 00:36 Ordered Medication Orders Sodium Chloride (Normal Saline) 1,000 mls @ 0 mls/hr IV ASDIRECTED MARTHA Last Admin: 09/01/19 23:20 Dose: 25 mls/hr Diltiazem HCl 100 mg/ Sodium (Chloride) 100 mls @ 5 mls/hr IV TITRATE MARTHA; Protocol Last Admin: 09/02/19 00:56 Dose: 5 mg/hr, 5 mls/hr Sodium Chloride (Saline Flush) 10 ml FLUSH ASDIRECTED PRN PRN Reason: Keep Vein Open Last Admin: 09/01/19 23:20 Dose: 10 ml Labs: Laboratory Tests 09/01/19 09/01/19 Range/Units 00:01 00:01 WBC 7.4 (4.5-11.0) K/uL RBC 5.03 (3.30-5.50) M/uL Hgb 15.1 H (12.0-15.0) g/dL Hct 44.9 (36.0-48.0) % MCV 89 (80-98) fL MCH 30 (27-31) pg MCHC 34 (32-36) % Plt Count 242 (150-400) K/uL Sodium 141 (140-148) mmol/L Potassium 3.7 (3.6-5.2) mmol/L Chloride 104 (100-108) mmol/L Carbon Dioxide 27 (21-32) mmol/L Anion Gap 10.2 (5.0-14.0) mmol/L BUN 30 H (7-18) mg/dL Creatinine 1.0 (0.6-1.0) mg/dL Est Cr Clr Drug Dosing 48.30 mL/min Estimated GFR (MDRD) 55 L (>60) Glucose 159 H (74-106) mg/dL Calcium 9.3 (8.5-10.1) mg/dL Troponin I < 0.017 (0.000-0.056) ng/mL Meds: Medications Generic Name Dose Route Start Last Admin Trade Name Freq PRN Reason Stop Dose Admin Sodium Chloride 1,000 mls @ 0 mls/hr 09/01/19 23:15 09/01/19 23:20 Normal Saline IV 25 mls/hr ASDIRECTED MARTHA Administration KVO Diltiazem HCl 100 mg/ Sodium 100 mls @ 5 mls/hr 09/02/19 00:45 09/02/19 00:56 Chloride IV 5 mg/hr TITRATE MARTHA 5 mls/hr Administration Protocol 5 MG/HR Sodium Chloride 10 ml 09/01/19 22:53 09/01/19 23:20 Saline Flush FLUSH 10 ml ASDIRECTED PRN Administration Keep Vein Open Discontinued Medications Generic Name Dose Route Start Last Admin Trade Name Freq PRN Reason Stop Dose Admin Diltiazem HCl 20 mg 09/02/19 00:31 09/02/19 00:40 Diltiazem IVPUSH 09/02/19 00:32 20 mg ONETIME ONE Administration Propofol Confirm 09/01/19 23:56 Diprivan 20 Ml Administered 09/01/19 23:57 [facility] - Re-Assessments/Exams Free Text/Narrative Re-Assessment/Exam: 09/01/19 23:52 Cardioverted w/200J synchronized. She converted to sinus right away, then went back into afib at the same rate as before cardioversion. Departure - Departure Time of Disposition: 00:35 Disposition: Admitted As Inpatient 64 Condition: Fair Clinical Impression: Atrial fibrillation and flutter, Atrial flutter with rapid ventricular response Clinical Impression: (Ruled Out): Atrial fibrillation with RVR Referrals: Poli Sharp MD [Primary Care Provider] - Forms: ED Department Discharge Sepsis Event Note - Evaluation Sepsis Screening Result: No Definite Risk - Focused Exam Vital Signs: Vital Signs Temp Pulse Resp BP Pulse Ox 09/01/19 22:50 151 H 24 H 139/81 94 L 09/01/19 22:49 36.3 C 116 H 18 145/73 H 95 09/01/19 22:34 36.3 C 116 H 18 145/73 H 95 Date Exam was Performed: 09/02/19 Time Exam was Performed: 01:04 - My Orders Last 24 Hours: My Active Orders 09/01/19 22:37 Cardiac Monitoring [RC] .As Directed 09/01/19 22:53 Sodium Chloride 0.9% [Saline Flush] 10 ml FLUSH ASDIRECTED PRN Saline Lock Insert [OM.PC] Routine 09/01/19 23:15 Sodium Chloride 0.9% [Normal Saline] 1,000 ml IV ASDIRECTED - Assessment/Plan Last 24 Hours: My Active Orders 09/01/19 22:37 Cardiac Monitoring [RC] .As Directed 09/01/19 22:53 Sodium Chloride 0.9% [Saline Flush] 10 ml FLUSH ASDIRECTED PRN Saline Lock Insert [OM.PC] Routine 09/01/19 23:15 Sodium Chloride 0.9% [Normal Saline] 1,000 ml IV ASDIRECTED
[2019-09-01] MEDS: Sodium Chloride 0.9% 1,000 ML IV SCH (23:20)
[2019-09-01] MEDS: Sodium Chloride 0.9% 10 ML Syringe FLUSH PRN (23:20)
[2019-09-01] MEDS ORDERED: Propofol 200 MG/20 ML SDV ONE (23:56)
--- NOTE | 2019-09-02 00:39 | PCM.HP.2 ---
H&P History of Present Illness - General Date of Service: 09/02/19 Admit Problem/Dx: Admission Diagnosis/Problem Admission Diagnosis/Problem Atrial fibrillation Source of Information: Patient, Family, Old Records, Provider, RN Notes Reviewed History Limitations: Reports: No Limitations - History of Present Illness Initial Comments - Free Text/Narative: Ms. Acharya is a 69-year-old woman who was admitted through the emergency department for further management of atrial fibrillation with rapid ventricular response. This is her third episode of atrial fibrillation in the past 2 months. Most recent episode was approximately 1 month ago, she was treated with IV diltiazem and spontaneously converted to sinus rhythm. Since then she has seen cardiology and been started on long-term anticoagulation with Eliquis. She was on a somewhat higher dose of metoprolol but dose is been decreased because of symptoms of weakness with the higher dose. She felt well through the day yesterday but at approximately 9:30 at night noted abrupt onset of a rapid irregular rhythm. She denied any other associated symptoms including lightheadedness, chest pain, or shortness of breath. She presented to the emergency department for further evaluation, EKG documented atrial fibrillation with rapid ventricular response. Attempt was made at cardioversion in the emergency department which was successful in returning her to sinus rhythm. Sinus rhythm lasted only approximately 5 minutes and she went back into atrial fibrillation. - Related Data Allergies/Adverse Reactions: Allergies Allergy/AdvReac Type Severity Reaction Status Date / Time adhesive Allergy Itching Verified 09/01/19 22:37 Home Medications: Home Meds Fish Oil/[place]-3 Fatty Acids [Fish Oil 1,000 MG] 1 tab PO DAILY 08/15/16 [ History] Lactobacillus Acidophilus [Probiotic] 1 tab PO DAILY 08/15/16 [History] Multivitamin [Multivitamins] 1 tab PO BID 08/15/16 [History] Ubiquinol 1 tab PO DAILY 08/15/16 [History] Metoprolol Tartrate 37 mg PO BID 07/09/19 [History] Apixaban [Eliquis] 5 mg PO BID 09/01/19 [History] Biotin 5 mg PO DAILY 09/01/19 [History] Calcium Carb, Citrate/Vit D3 [Calcium + D3 ER Tablet] 1 tab PO BID 09/01/19 [ History] Levothyroxine Sodium 1 tab PO DAILY 09/01/19 [History] Past Medical History Cardiovascular History: Reports: Afib, Other (See Below) 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 Cardiovascular History: 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: Endocrine/Metabolic History: Reports: Hypothyroidism Other Endocrine/Metabolic History: checks blood sugars for pre diabetes Oncologic (Cancer) History: Reports: Uterine - Past Surgical History HEENT Surgical History: Reports: Other (See Below) GI Surgical History: Reports: Appendectomy Female Surgical History: Reports: Section, Hysterectomy Musculoskeletal Surgical History: Reports: Knee Replacement Social & Family History - Family History Family Medical History: Noncontributory - Tobacco Use Smoking Status *Q: Never Smoker - Caffeine Use Caffeine Use: Reports: None H&P Review of Systems - Review of Systems: Review Of Systems: See Below General: Reports: No Symptoms HEENT: Reports: No Symptoms Pulmonary: Reports: No Symptoms Cardiovascular: Reports: Palpitations. Denies: Chest Pain, Dyspnea on Exertion , Orthopnea, PND, Edema, Lightheadedness Gastrointestinal: Reports: No Symptoms Genitourinary: Reports: No Symptoms Musculoskeletal: Reports: No Symptoms Skin: Reports: No Symptoms Psychiatric: Reports: No Symptoms Neurological: Reports: No Symptoms Hematologic/Lymphatic: Reports: No Symptoms Immunologic: Reports: No Symptoms Exam - Exam Exam: See Below - Vital Signs Vital Signs: Last Vital Signs Temp 97.3 F 09/01/19 22:49 Pulse 151 H 09/01/19 22:50 Resp 24 H 09/01/19 22:50 BP 139/81 09/01/19 22:50 Pulse Ox 94 L 09/01/19 22:50 Weight: 260 lb 5.855 oz - Exam Quality Assessment: DVT Prophylaxis General: Alert, Oriented, Cooperative, Mild Distress HEENT: Conjunctiva Clear, Hearing Intact, Mucosa Moist & [place], Normal Nasal Septum, Posterior Pharynx Clear, Pupils Equal Neck: Supple, Trachea Midline, +2 Carotid Pulse wo Bruit Lungs: Clear to Auscultation, Normal Respiratory Effort Cardiovascular: Irregular Rhythm, Tachycardia. No: Systolic Murmur, Diastolic Murmur GI/Abdominal Exam: Soft, Non-Tender, No Organomegaly, No Distention Back Exam: Normal Inspection, Full Range of Motion Extremities: Non-Tender, No Pedal Edema Skin: Warm, Dry, Intact Neurological: Cranial Nerves Intact, Strength Equal Bilateral, Normal Speech, Normal Tone, Sensation Intact. No: Focal Deficit Neuro Extensive - Mental Status: Alert, Oriented x3, Normal Mood/Affect, Normal Cognition, Memory Intact - Patient Data Lab Results Last 24 hrs: Laboratory Results - last 24 hr 09/01/19 09/01/19 Range/Units 00:01 00:01 WBC 7.4 (4.5-11.0) K/uL RBC 5.03 (3.30-5.50) M/uL Hgb 15.1 H (12.0-15.0) g/dL Hct 44.9 (36.0-48.0) % MCV 89 (80-98) fL MCH 30 (27-31) pg MCHC 34 (32-36) % Plt Count 242 (150-400) K/uL Sodium 141 (140-148) mmol/L Potassium 3.7 (3.6-5.2) mmol/L Chloride 104 (100-108) mmol/L Carbon Dioxide 27 (21-32) mmol/L Anion Gap 10.2 (5.0-14.0) mmol/L BUN 30 H (7-18) mg/dL Creatinine 1.0 (0.6-1.0) mg/dL Est Cr Clr Drug Dosing 48.30 mL/min Estimated GFR (MDRD) 55 L (>60) Glucose 159 H (74-106) mg/dL Calcium 9.3 (8.5-10.1) mg/dL Troponin I < 0.017 (0.000-0.056) ng/mL Result Diagrams: 09/01/19 00:01 09/01/19 00:01 Sepsis Event Note - Evaluation Sepsis Screening Result: No Definite Risk - Focused Exam Vital Signs: Vital Signs Temp Pulse Resp BP Pulse Ox 09/01/19 22:50 151 H 24 H 139/81 94 L 09/01/19 22:49 97.3 F 116 H 18 145/73 H 95 09/01/19 22:34 97.3 F 116 H 18 145/73 H 95 Date Exam was Performed: 09/02/19 Time Exam was Performed: 01:13 *Q Meaningful Use (ADM) - VTE Risk Assess *Q Each Risk Factor Represents 1 Point: Obesity ( BMI > 25 kg/m2) Total Score 1 Point Risk Factors: 1 Each Risk Factor Represents 2 Points: Age 60 - 74 Years Total Score 2 Point Risk Factors: 2 Each Risk Factor Represents 3 Points: None Total Score 3 Point Risk Factors: 0 Each Risk Factor Represents 5 Points: None Total Score 5 Point Risk Factors: 0 Venous Thromboembolism Risk Factor Score *Q: 3 Problem List Initiated/Reviewed/Updated: Yes Orders Last 24hrs: Active Orders 24 hr Category Date Time Status Patient Status Manage Transfer [TRANSFER] Routine ADT 09/02/19 00:32 Ordered Cardiac Monitoring [RC] .As Directed Care 09/01/19 22:37 Active Diltiazem [Cardizem] 100 mg Med 09/02/19 00:45 Active Sodium Chloride 0.9% [Normal Saline] 100 ml IV TITRATE Sodium Chloride 0.9% [Normal Saline] 1,000 ml Med 09/01/19 23:15 Active IV ASDIRECTED Sodium Chloride 0.9% [Saline Flush] Med 09/01/19 22:53 Active 10 ml FLUSH ASDIRECTED PRN Saline Lock Insert [OM.PC] Routine Oth 09/01/19 22:53 Ordered Resuscitation Status Routine Resus Stat 09/02/19 00:36 Ordered Medication Orders Sodium Chloride (Normal Saline) 1,000 mls @ 0 mls/hr IV ASDIRECTED MARTHA Last Admin: 09/01/19 23:20 Dose: 25 mls/hr Diltiazem HCl 100 mg/ Sodium (Chloride) 100 mls @ 5 mls/hr IV TITRATE MARTHA; Protocol Sodium Chloride (Saline Flush) 10 ml FLUSH ASDIRECTED PRN PRN Reason: Keep Vein Open Last Admin: 09/01/19 23:20 Dose: 10 ml Assessment/Plan Comment:: ASSESSMENT AND PLAN ATRIAL FIBRILLATION WITH RAPID VENTRICULAR RESPONSE-no obvious precipitating factors identified. Electrical cardioversion in the emergency department was successful in returning sinus rhythm, she quickly went back into atrial fibrillation. -Continue current dose of metoprolol -Diltiazem 20 mg IV given in ED -Continuous infusion of diltiazem to start at 5 mg/h -Continue Eliquis -Convert to oral medications later today MAINTENANCE ISSUES -DVT prophylaxis; current therapy with Eliquis should provide adequate DVT prophylaxis -GI prophylaxis; not indicated -Fonseca catheter; not indicated -Nutrition; regular diet -Nicotine dependence; not required CODE STATUS-FULL CODE ADMISSION STATUS-patient will be admitted to inpatient status, expect at least a 2 night hospital stay for evaluation and management of problems as outlined above. At the time of this admission I do not reasonably expected evaluation and management of this problem will require more than a 96 hour hospital stay. DISPOSITION-anticipate discharge to home after the hospital stay. PRIMARY CARE PROVIDER-Dr. Sharp - Mortality Measure Prognosis:: Good
[2019-09-02] MEDS: Diltiazem 25 MG/5 ML SDV IVPUSH ONE (00:40)
[2019-09-02] MEDS: Diltiazem 100 MG in Sodium Chloride 0.9% 100 ML IV SCH (00:56)
[2019-09-02] MEDS ORDERED: Acetaminophen 325 MG Tab PO PRN (01:35)
[2019-09-02] MEDS ORDERED: Sodium Chloride 0.9% 10 ML Syringe FLUSH PRN (01:35)
[2019-09-02] MEDS ORDERED: Polyethylene Glycol 3350 Powder 17 GM Packet PO PRN (01:35)
[2019-09-02] MEDS ORDERED: Ondansetron 4 MG/2 ML SDV IV PRN (01:35)
[2019-09-02] MEDS: Levothyroxine 112 MCG Tab PO SCH (07:34)
[2019-09-02] MEDS: Levothyroxine 25 MCG Tab PO SCH (07:34)
[2019-09-02] MEDS: Apixaban 5 MG Tab PO SCH (08:33)
[2019-09-02] MEDS: Metoprolol Tartrate 25 MG Tab PO SCH (08:33)
[2019-09-02] MEDS: Lactobacillus Rhamnosus GG (Probiotic) Cap PO SCH (08:33)
[2019-09-02] MEDS ORDERED: LEVOTHYROXINE SODIUM PO SCH (09:00)
[2019-09-02] MEDS ORDERED: LACTOBACILLUS ACIDOPHILUS PO SCH (09:00)
--- NOTE | 2019-09-02 09:55 | PCM.DCSUM1 ---
Discharge Summary - Hospital Course Brief History: Ms. Achraya is a 69-year-old woman who was admitted through the emergency department for further management of atrial fibrillation with rapid ventricular response. - Discharge Data Discharge Date: 09/02/19 Discharge Disposition: Home, Self-Care 01 Condition: Fair - Referral to Home Health Date of Face to Face Encounter: 09/02/19 Primary Care Physician: Poli Sharp MD - Discharge Diagnosis/Problem(s) (1) Atrial fibrillation with rapid ventricular response SNOMED Code(s): 755152976833071 ICD Code: I48.91 - UNSPECIFIED ATRIAL FIBRILLATION Status: Acute Current Visit: Yes - Patient Summary/Data Hospital Course: Ms. Acharya is a 69-year-old woman who was admitted through the emergency department for further management of atrial fibrillation with rapid ventricular response. This is her third episode of atrial fibrillation in the past 2 months. Most recent episode was approximately 1 month ago, she was treated with IV diltiazem and spontaneously converted to sinus rhythm. Since then she has seen cardiology and been started on long-term anticoagulation with Eliquis. She was on a somewhat higher dose of metoprolol but dose is been decreased because of symptoms of weakness with the higher dose. She felt well through the day yesterday but at approximately 9:30 at night noted abrupt onset of a rapid irregular rhythm. She denied any other associated symptoms including lightheadedness, chest pain, or shortness of breath. She presented to the emergency department for further evaluation, EKG documented atrial fibrillation with rapid ventricular response. Attempt was made at cardioversion in the emergency department which was successful in returning her to sinus rhythm. Sinus rhythm lasted only approximately 5 minutes and she went back into atrial fibrillation. While in the emergency department she received a bolus dose of IV diltiazem at 20 mg and was started on a continuous infusion of IV diltiazem at 5 mg/h. Early in the morning of discharge she spontaneously converted to sinus rhythm and remained in sinus rhythm through the rest of her hospitalization. She was admitted to inpatient status but improved more rapidly than anticipated and was discharged after just 1 night of hospitalization. Activity will be as tolerated and she will resume her usual diet. No changes in medication will be made and she will remain on oral anti- coagulation with Eliquis. Follow-up appointment will be scheduled with her primary care provider within 1 week. Consider follow-up appointment with cardiology for assistance in ongoing management of her paroxysmal atrial fibrillation. - Patient Instructions Diet: Usual Diet as Tolerated Activity: As Tolerated Other/Special Instructions: Please schedule follow-up appointment with primary care provider within 1 week. Consider follow-up with cardiology for ongoing management of paroxysmal atrial fibrillation. - Discharge Plan Home Medications: Home Meds Fish Oil/[place]-3 Fatty Acids [Fish Oil 1,000 MG] 1 tab PO DAILY 08/15/16 [ History] Lactobacillus Acidophilus [Probiotic] 1 tab PO DAILY 08/15/16 [History] Multivitamin [Multivitamins] 1 tab PO BID 08/15/16 [History] Ubiquinol 1 tab PO DAILY 08/15/16 [History] Metoprolol Tartrate 37 mg PO BID 07/09/19 [History] Apixaban [Eliquis] 5 mg PO BID 09/01/19 [History] Biotin 5 mg PO DAILY 09/01/19 [History] Calcium Carb, Citrate/Vit D3 [Calcium + D3 ER Tablet] 1 tab PO BID 09/01/19 [ History] Levothyroxine Sodium 1 tab PO DAILY 09/01/19 [History] Oxygen Flow Rate (L/min): 2 Referrals: Poli Sharp MD [Primary Care Provider] - - Discharge Summary/Plan Comment DC Time >30 min.: No - Patient Data Vitals - Most Recent: Last Vital Signs Temp 97.7 F 09/02/19 07:00 Pulse 75 09/02/19 08:33 Resp 21 H 09/02/19 08:00 BP 127/59 L 09/02/19 08:33 Pulse Ox 93 L 09/02/19 08:00 Weight - Most Recent: 260 lb 6.4 oz I&O - Last 24 hours: Intake & Output 09/01/19 09/02/19 09/02/19 22:59 06:59 14:59 Output Total 300 Balance -300 Lab Results - Last 24 hrs: Laboratory Results - last 24 hr 09/01/19 09/01/19 Range/Units 00:01 00:01 WBC 7.4 (4.5-11.0) K/uL RBC 5.03 (3.30-5.50) M/uL Hgb 15.1 H (12.0-15.0) g/dL Hct 44.9 (36.0-48.0) % MCV 89 (80-98) fL MCH 30 (27-31) pg MCHC 34 (32-36) % Plt Count 242 (150-400) K/uL Sodium 141 (140-148) mmol/L Potassium 3.7 (3.6-5.2) mmol/L Chloride 104 (100-108) mmol/L Carbon Dioxide 27 (21-32) mmol/L Anion Gap 10.2 (5.0-14.0) mmol/L BUN 30 H (7-18) mg/dL Creatinine 1.0 (0.6-1.0) mg/dL Est Cr Clr Drug Dosing 48.30 mL/min Estimated GFR (MDRD) 55 L (>60) Glucose 159 H (74-106) mg/dL Calcium 9.3 (8.5-10.1) mg/dL Troponin I < 0.017 (0.000-0.056) ng/mL Med Orders - Current: Current Medications Acetaminophen (Tylenol) 650 mg PO Q4H PRN PRN Reason: Pain (Mild 1-3)/fever Apixaban (Eliquis) 5 mg PO BID [facility] Last Admin: 09/02/19 08:33 Dose: 5 mg Diltiazem HCl 100 mg/ Sodium (Chloride) 100 mls @ 5 mls/hr IV TITRATE [facility]; Protocol Last Titration: 09/02/19 07:27 Dose: 0 mg/hr, 0 mls/hr Lactobacillus Rhamnosus (Culturelle) 1 cap PO DAILY [facility] Last Admin: 09/02/19 08:33 Dose: 1 cap Levothyroxine Sodium (Levothyroxine) 112 mcg PO ACBREAKFAST [facility] Last Admin: 09/02/19 07:34 Dose: 112 mcg Levothyroxine Sodium (Levothyroxine) 25 mcg PO ACBREAKFAST [facility] Last Admin: 09/02/19 07:34 Dose: 25 mcg Metoprolol Tartrate (Lopressor) 37.5 mg PO BID [facility] Last Admin: 09/02/19 08:33 Dose: 37.5 mg Ondansetron HCl (Zofran) 4 mg IV Q4H PRN PRN Reason: Nausea/Vomiting Polyethylene Glycol (Miralax) 17 gm PO DAILY PRN PRN Reason: Constipation Sodium Chloride (Saline Flush) 10 ml FLUSH ASDIRECTED PRN PRN Reason: Keep Vein Open Discontinued Medications Diltiazem HCl (Diltiazem) 20 mg IVPUSH ONETIME ONE Stop: 09/02/19 00:32 Last Admin: 09/02/19 00:40 Dose: 20 mg Sodium Chloride (Normal Saline) 1,000 mls @ 0 mls/hr IV ASDIRECTED MARTHA Last Admin: 09/01/19 23:20 Dose: 25 mls/hr Propofol (Diprivan 20 Ml) Confirm Administered Dose 200 mg .ROUTE .STK-MED ONE Stop: 09/01/19 23:57 Sodium Chloride (Saline Flush) 10 ml FLUSH ASDIRECTED PRN PRN Reason: Keep Vein Open Last Admin: 09/01/19 23:20 Dose: 10 ml - Exam General: Reports: Alert, Oriented, Cooperative, No Acute Distress Lungs: Reports: Clear to Auscultation, Normal Respiratory Effort Cardiovascular: Reports: Regular Rate, Regular Rhythm, No Murmurs GI/Abdominal Exam: Soft, Non-Tender, No Organomegaly, No Distention Extremities: Non-Tender, No Pedal Edema *Q Meaningful Use (DIS) - VTE *Q VTE Pharmacological Contraindications *Q: High INR Value
[2019-09-02 11:16] VITALS: BP 113/43; PULSE 70
== END 2019-09-02 11:00 | disposition home or self-care (01) | DRG 310 ==
LOC: JP.ED 22:19 → JP.ICU 09-02 00:32
PROVIDERS: ADMIT Hospitalist; ATTEND Hospitalist
PROC: 5A2204Z Restoration of Cardiac Rhythm, Single (ICD-10-PCS; principal; 2019-09-02)
DX: I48.91 Unspecified atrial fibrillation (principal); I48.92 Unspecified atrial flutter; I48.0 Paroxysmal atrial fibrillation; E11.9 Type 2 diabetes mellitus without complications; Z79.01 Long term (current) use of anticoagulants; E03.9 Hypothyroidism, unspecified; Z96.659 Presence of unspecified artificial knee joint; Z90.49 Acquired absence of other specified parts of digestive tract; Z90.710 Acquired absence of both cervix and uterus; Z79.890 Hormone replacement therapy; Z79.899 Other long term (current) drug therapy; Z91.09 Other allergy status, other than to drugs and biological substances
CPT/HCPCS: 36415; 80048; 84484; 85027; J2704; J7030; 96360; 99285-25; A9270-GY; J3490; J7050

== ENCOUNTER 2019-09-20 03:36 | Emergency (ER) | payer MEDICARE, OTHER ==
[2019-09-20] MEDS ORDERED: Sodium Chloride 0.9% 10 ML Syringe FLUSH PRN (04:12)
[2019-09-20] MEDS ORDERED: Diltiazem 25 MG/5 ML SDV IVPUSH ONE ×2 (04:12→07:53)
[2019-09-20] MEDS ORDERED: Diltiazem 100 MG in Sodium Chloride 0.9% 100 ML IV SCH (04:15)
[2019-09-20] MEDS ORDERED: Lactated Ringers 1,000 ML IV SCH (04:15)
--- NOTE | 2019-09-20 04:16 | EDM.PDOC ---
ED HPI GENERAL MEDICAL PROBLEM - General Chief Complaint: Cardiovascular Problem Stated Complaint: HEART PALPITATIONS Time Seen by Provider: 09/20/19 04:05 Source of Information: Reports: Patient, Old Records, RN Notes Reviewed History Limitations: Reports: No Limitations - History of Present Illness INITIAL COMMENTS - FREE TEXT/NARRATIVE: 69-year-old female presents emergency department a complaint of palpitations she has a known history of paroxysmal atrial fibrillation this will be her fourth event of atrial fibrillation over the last couple months last time was debating ending at this month. She states she is not having any shortness of breath no chest pain no nausea vomiting she feels the palpitations she tried waiting at home for several hours seen if she would spontaneously convert unfortunately it still continues and she was unable to sleep. The event earlier this month she did have cardioversion unfortunately only lasted 5 minutes with subsequent admitted the hospital started on Cardizem and then converted after an overnight stay. She is a candidate for ablation but because of the current pandemic all elective surgeries are postponed - Related Data Allergies Allergy/AdvReac Type Severity Reaction Status Date / Time adhesive Allergy Itching Verified 09/20/19 03:55 Home Meds: Home Meds Fish Oil/[place]-3 Fatty Acids [Fish Oil 1,000 MG] 1 tab PO DAILY 08/15/16 [ History] Lactobacillus Acidophilus [Probiotic] 1 tab PO DAILY 08/15/16 [History] Multivitamin [Multivitamins] 1 tab PO BID 08/15/16 [History] Ubiquinol 1 tab PO DAILY 08/15/16 [History] Metoprolol Tartrate 50 mg PO BID 07/09/19 [History] Apixaban [Eliquis] 5 mg PO BID 09/01/19 [History] Biotin 5 mg PO DAILY 09/01/19 [History] Calcium Carb, Citrate/Vit D3 [Calcium + D3 ER Tablet] 1 tab PO BID 09/01/19 [ History] Levothyroxine Sodium 1 tab PO DAILY 09/01/19 [History] Colostrum, Bovine [Colostrum] 1,000 mg PO DAILY 09/20/19 [History] Past Medical History Cardiovascular History: Reports: Afib, Other (See Below) Other Cardiovascular History: 3rd episode since 2017 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: Endocrine/Metabolic History: Reports: Hypothyroidism Other Endocrine/Metabolic History: checks blood sugars for pre diabetes Hematologic History: Reports: Anticoagulation Therapy Oncologic (Cancer) History: Reports: Uterine - Infectious Disease History Infectious Disease History: Reports: Chicken Pox, Measles, Mumps - Past Surgical History HEENT Surgical History: Reports: Other (See Below) GI Surgical History: Reports: Appendectomy Female Surgical History: Reports: Section, Hysterectomy Musculoskeletal Surgical History: Reports: Knee Replacement Social & Family History - Family History Family Medical History: Noncontributory - Tobacco Use Smoking Status *Q: Never Smoker - Caffeine Use Caffeine Use: Reports: None - Recreational Drug Use Recreational Drug Use: No ED ROS GENERAL - Review of Systems Review Of Systems: See Below Constitutional: Reports: No Symptoms HEENT: Reports: No Symptoms Respiratory: Reports: No Symptoms Cardiovascular: Reports: Palpitations GI/Abdominal: Reports: No Symptoms ED EXAM, GENERAL - Physical Exam Exam: See Below Exam Limited By: No Limitations General Appearance: Alert, WD/WN, No Apparent Distress Respiratory/Chest: No Respiratory Distress, Lungs Clear, Normal Breath Sounds, No Accessory Muscle Use, Chest Non-Tender Cardiovascular: No Murmur, Tachycardia GI/Abdominal: Soft, Non-Tender Course - Vital Signs Last Recorded V/S: Last Vital Signs Temp 96.9 F 09/20/19 03:59 Pulse 76 09/20/19 06:29 Resp 17 09/20/19 06:29 BP 107/57 L 09/20/19 06:29 Pulse Ox 93 L 09/20/19 06:29 - Orders/Labs/Meds Orders: Active Orders 24 hr Category Date Time Status Cardiac Monitoring [RC] .As Directed Care 09/20/19 04:12 Active EKG Documentation Completion [RC] ASDIRECTED Care 09/20/19 04:13 Active Peripheral IV Care [RC] . DIRECTED Care 09/20/19 04:13 Active Diltiazem [Cardizem] 100 mg Med 09/20/19 04:15 Active Sodium Chloride 0.9% [Normal Saline] 100 ml IV TITRATE Sodium Chloride 0.9% [Normal Saline] 1,000 ml Med 09/20/19 04:30 Active IV ASDIRECTED Sodium Chloride 0.9% [Saline Flush] Med 09/20/19 04:12 Active 10 ml FLUSH ASDIRECTED PRN Peripheral IV Insertion Adult [OM.PC] Stat Oth 09/20/19 04:12 Ordered EKG 12 Lead [EK] Stat Ther 09/20/19 04:13 Ordered Medication Orders Diltiazem HCl 100 mg/ Sodium (Chloride) 100 mls @ 5 mls/hr IV TITRATE MARTHA; Protocol Sodium Chloride (Normal Saline) 1,000 mls @ 125 mls/hr IV ASDIRECTED MARTHA Last Infusion: 09/20/19 05:02 Dose: 999 mls/hr Admin: 09/20/19 04:25 Dose: 125 mls/hr Sodium Chloride (Saline Flush) 10 ml FLUSH ASDIRECTED PRN PRN Reason: Keep Vein Open Last Admin: 09/20/19 04:30 Dose: 10 ml Labs: Laboratory Tests 09/20/19 09/20/19 Range/Units 03:55 03:55 WBC 10.1 (4.5-11.0) K/uL RBC 5.78 H (3.30-5.50) M/uL Hgb 17.2 H D (12.0-15.0) g/dL Hct 51.2 H (36.0-48.0) % MCV 89 (80-98) fL MCH 30 (27-31) pg MCHC 34 (32-36) % Plt Count 288 (150-400) K/uL Neut % (Auto) 66 (36-66) % Lymph % (Auto) 23 L (24-44) % [place] % (Auto) 9 H (2-6) % Eos % (Auto) 2 (2-4) % Baso % (Auto) 0 (0-1) % Sodium 138 L (140-148) mmol/L Potassium 4.1 (3.6-5.2) mmol/L Chloride 103 (100-108) mmol/L Carbon Dioxide 26 (21-32) mmol/L Anion Gap 13.1 (5.0-14.0) mmol/L BUN 18 (7-18) mg/dL Creatinine 1.1 H (0.6-1.0) mg/dL Est Cr Clr Drug Dosing 43.91 mL/min Estimated GFR (MDRD) 49 L (>60) Glucose 146 H (74-106) mg/dL Calcium 10.2 H (8.5-10.1) mg/dL Total Bilirubin 0.5 D (0.2-1.0) mg/dL AST 19 (15-37) U/L ALT 44 (12-78) U/L Alkaline Phosphatase 86 (46-116) U/L Troponin I < 0.017 (0.000-0.056) ng/mL Total Protein 7.4 (6.4-8.2) g/dL Albumin 3.7 (3.4-5.0) g/dL Globulin 3.7 H (2.3-3.5) g/dL Albumin/Globulin Ratio 1.0 L (1.2-2.2) Meds: Medications Generic Name Dose Route Start Last Admin Trade Name Freq PRN Reason Stop Dose Admin Diltiazem HCl 100 mg/ Sodium 100 mls @ 5 mls/hr 09/20/19 04:15 Chloride IV TITRATE MARTHA Protocol 5 MG/HR Sodium Chloride 1,000 mls @ 125 mls/hr 09/20/19 04:30 09/20/19 05:02 Normal Saline IV 999 mls/hr ASDIRECTED MARTHA Infusion Sodium Chloride 10 ml 09/20/19 04:12 09/20/19 04:30 Saline Flush FLUSH 10 ml ASDIRECTED PRN Administration Keep Vein Open Discontinued Medications Generic Name Dose Route Start Last Admin Trade Name Freq PRN Reason Stop Dose Admin Diltiazem HCl 25 mg 09/20/19 04:12 09/20/19 04:29 Diltiazem IVPUSH 09/20/19 04:13 25 mg ONETIME ONE Administration Lactated Ringer's 1,000 mls @ 125 mls/hr 09/20/19 04:15 Ringers, Lactated IV ASDIRECTED MARTHA Departure - Departure Time of Disposition: 06:41 Disposition: Admitted As Inpatient 64 Condition: Fair Clinical Impression: Atrial fibrillation with rapid ventricular response Referrals: Poli Sharp MD [Primary Care Provider] - Forms: ED Department Discharge Sepsis Event Note - Evaluation Sepsis Screening Result: No Definite Risk - Focused Exam Vital Signs: Vital Signs Temp Pulse Resp BP Pulse Ox 09/20/19 06:29 76 17 107/57 L 93 L 09/20/19 05:59 76 118/60 09/20/19 05:29 76 101/54 L 09/20/19 05:14 77 96/52 L 09/20/19 04:59 78 16 86/48 L 93 L 09/20/19 03:59 96.9 F 149 H 17 133/87 94 L Date Exam was Performed: 09/20/19 Time Exam was Performed: 06:39 - My Orders Last 24 Hours: My Active Orders 09/20/19 04:12 Cardiac Monitoring [RC] .As Directed Sodium Chloride 0.9% [Saline Flush] 10 ml FLUSH ASDIRECTED PRN Peripheral IV Insertion Adult [OM.PC] Stat 09/20/19 04:13 EKG Documentation Completion [RC] ASDIRECTED Peripheral IV Care [RC] . DIRECTED EKG 12 Lead [EK] Stat 09/20/19 04:15 Diltiazem [Cardizem] 100 mg Sodium Chloride 0.9% [Normal Saline] 100 ml IV TITRATE 09/20/19 04:30 Sodium Chloride 0.9% [Normal Saline] 1,000 ml IV ASDIRECTED - Assessment/Plan Last 24 Hours: My Active Orders 09/20/19 04:12 Cardiac Monitoring [RC] .As Directed Sodium Chloride 0.9% [Saline Flush] 10 ml FLUSH ASDIRECTED PRN Peripheral IV Insertion Adult [OM.PC] Stat 09/20/19 04:13 EKG Documentation Completion [RC] ASDIRECTED Peripheral IV Care [RC] . DIRECTED EKG 12 Lead [EK] Stat 09/20/19 04:15 Diltiazem [Cardizem] 100 mg Sodium Chloride 0.9% [Normal Saline] 100 ml IV TITRATE 09/20/19 04:30 Sodium Chloride 0.9% [Normal Saline] 1,000 ml IV ASDIRECTED Plan: Assessment Acuity = acute Site and laterality = atrial fibrillation with rapid ventricular response Etiology = unknown Manifestations = palpitations Location of injury = Home Lab values = hemoglobin elevated 17.2 creatinine elevated 1.1 consistent chronic renal failure stage G3 a troponin was negative EKG demonstrates a sinus tachycardia, however when the rate did slow down demonstrated atrial fibrillation with a flutter Plan She was given Cardizem bolus 25 mg initially held off on the drip to see if she would spontaneously convert however heart rate started to climb again elected to restart the drip call discussed case hospitalist on-call at [phone] he kindly agreed to come and evaluate the patient emergency department for admission This note was dictated using [employer] voice recognition software please call with any questions on syntax or grammar.
[2019-09-20] MEDS ORDERED: Sodium Chloride 0.9% 1,000 ML IV SCH ×2 (04:30→06:45)
[2019-09-20 05:32] VITALS: PULSE 76
[2019-09-20 06:38] VITALS: BP 107/57
--- NOTE | 2019-09-20 07:17 | PCM.HP.2 ---
H&P History of Present Illness - General Date of Service: 09/20/19 Admit Problem/Dx: Admission Diagnosis/Problem Admission Diagnosis/Problem Atrial fibrillation and flutter - History of Present Illness Initial Comments - Free Text/Narative: Ms. Acharya is a 69-year-old woman who asked to see concerning further management of atrial fibrillation/flutter with rapid ventricular response. This is her forth episode of atrial fibrillation in the past 2.5 months. Most recent episode was approximately 3 weeks ago, she was treated with IV diltiazem and spontaneously converted to sinus rhythm. Currently is on long-term oral anticoagulation with Eliquis. During her last emergency department evaluation and she was cardioverted successfully to sinus rhythm, acid only 5 minutes and then she was back into atrial fibrillation flutter. Her dose of metoprolol was increased to 50 mg twice daily during last hospitalization after she converted on IV diltiazem. She noted onset of rapid rate yesterday morning when she was eating breakfast. She waited until early this morning to come in hoping that it would go back to normal on it its own. In the emergency department here she is noted to be in atrial fib flutter with rapid ventricular response. She received a bolus dose of IV diltiazem and is been started on a continuous infusion of IV diltiazem. I did contact cardiology on-call at [facility] and they have recommended that the patient be transferred for further cardiac evaluation and management because of the recurrent episodes. - Related Data Allergies/Adverse Reactions: Allergies Allergy/AdvReac Type Severity Reaction Status Date / Time adhesive Allergy Itching Verified 09/20/19 03:55 Home Medications: Home Meds Fish Oil/[place]-3 Fatty Acids [Fish Oil 1,000 MG] 1 tab PO DAILY 08/15/16 [ History] Lactobacillus Acidophilus [Probiotic] 1 tab PO DAILY 08/15/16 [History] Multivitamin [Multivitamins] 1 tab PO BID 08/15/16 [History] Ubiquinol 1 tab PO DAILY 08/15/16 [History] Metoprolol Tartrate 50 mg PO BID 07/09/19 [History] Apixaban [Eliquis] 5 mg PO BID 09/01/19 [History] Biotin 5 mg PO DAILY 09/01/19 [History] Calcium Carb, Citrate/Vit D3 [Calcium + D3 ER Tablet] 1 tab PO BID 09/01/19 [ History] Levothyroxine Sodium 1 tab PO DAILY 09/01/19 [History] Colostrum, Bovine [Colostrum] 1,000 mg PO DAILY 09/20/19 [History] Past Medical History Cardiovascular History: Reports: Afib, Other (See Below) Other Cardiovascular History: 3rd episode since 2017 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: Endocrine/Metabolic History: Reports: Hypothyroidism Other Endocrine/Metabolic History: checks blood sugars for pre diabetes Hematologic History: Reports: Anticoagulation Therapy Oncologic (Cancer) History: Reports: Uterine - Infectious Disease History Infectious Disease History: Reports: Chicken Pox, Measles, Mumps - Past Surgical History HEENT Surgical History: Reports: Other (See Below) GI Surgical History: Reports: Appendectomy Female Surgical History: Reports: Section, Hysterectomy Musculoskeletal Surgical History: Reports: Knee Replacement Social & Family History - Family History Family Medical History: Noncontributory - Tobacco Use Smoking Status *Q: Never Smoker - Caffeine Use Caffeine Use: Reports: None - Recreational Drug Use Recreational Drug Use: No H&P Review of Systems - Review of Systems: Review Of Systems: See Below General: Reports: No Symptoms HEENT: Reports: No Symptoms Pulmonary: Reports: No Symptoms Cardiovascular: Reports: Palpitations. Denies: Chest Pain, Dyspnea on Exertion , Orthopnea, PND, Edema, Lightheadedness Gastrointestinal: Reports: No Symptoms Genitourinary: Reports: No Symptoms Musculoskeletal: Reports: No Symptoms Skin: Reports: No Symptoms Psychiatric: Reports: No Symptoms Neurological: Reports: No Symptoms Hematologic/Lymphatic: Reports: No Symptoms Immunologic: Reports: No Symptoms Exam - Exam Exam: See Below - Vital Signs Vital Signs: Last Vital Signs Temp 96.9 F 09/20/19 03:59 Pulse 76 09/20/19 06:29 Resp 17 09/20/19 06:29 BP 107/57 L 09/20/19 06:29 Pulse Ox 93 L 09/20/19 06:29 Weight: 255 lb 1.197 oz - Exam Quality Assessment: DVT Prophylaxis General: Alert, Oriented, Cooperative HEENT: Conjunctiva Clear, Mucosa Moist & [place], Normal Nasal Septum, Posterior Pharynx Clear, Pupils Equal Neck: Supple, Trachea Midline, +2 Carotid Pulse wo Bruit Lungs: Clear to Auscultation, Normal Respiratory Effort Cardiovascular: Irregular Rhythm, Tachycardia. No: Systolic Murmur, Diastolic Murmur GI/Abdominal Exam: Soft, Non-Tender, No Organomegaly, No Distention Extremities: Non-Tender, No Pedal Edema Skin: Warm, Dry, Intact Neurological: Cranial Nerves Intact, Strength Equal Bilateral, Normal Speech, Normal Tone, Sensation Intact. No: Focal Deficit Neuro Extensive - Mental Status: Alert, Oriented x3, Normal Mood/Affect, Normal Cognition, Memory Intact - Patient Data Lab Results Last 24 hrs: Laboratory Results - last 24 hr 09/20/19 09/20/19 Range/Units 03:55 03:55 WBC 10.1 (4.5-11.0) K/uL RBC 5.78 H (3.30-5.50) M/uL Hgb 17.2 H D (12.0-15.0) g/dL Hct 51.2 H (36.0-48.0) % MCV 89 (80-98) fL MCH 30 (27-31) pg MCHC 34 (32-36) % Plt Count 288 (150-400) K/uL Neut % (Auto) 66 (36-66) % Lymph % (Auto) 23 L (24-44) % [place] % (Auto) 9 H (2-6) % Eos % (Auto) 2 (2-4) % Baso % (Auto) 0 (0-1) % Sodium 138 L (140-148) mmol/L Potassium 4.1 (3.6-5.2) mmol/L Chloride 103 (100-108) mmol/L Carbon Dioxide 26 (21-32) mmol/L Anion Gap 13.1 (5.0-14.0) mmol/L BUN 18 (7-18) mg/dL Creatinine 1.1 H (0.6-1.0) mg/dL Est Cr Clr Drug Dosing 43.91 mL/min Estimated GFR (MDRD) 49 L (>60) Glucose 146 H (74-106) mg/dL Calcium 10.2 H (8.5-10.1) mg/dL Total Bilirubin 0.5 D (0.2-1.0) mg/dL AST 19 (15-37) U/L ALT 44 (12-78) U/L Alkaline Phosphatase 86 (46-116) U/L Troponin I < 0.017 (0.000-0.056) ng/mL Total Protein 7.4 (6.4-8.2) g/dL Albumin 3.7 (3.4-5.0) g/dL Globulin 3.7 H (2.3-3.5) g/dL Albumin/Globulin Ratio 1.0 L (1.2-2.2) Result Diagrams: 09/20/19 03:55 09/20/19 03:55 Sepsis Event Note - Evaluation Sepsis Screening Result: No Definite Risk - Focused Exam Vital Signs: Vital Signs Temp Pulse Resp BP Pulse Ox 09/20/19 06:29 76 17 107/57 L 93 L 09/20/19 05:59 76 118/60 09/20/19 05:29 76 101/54 L 09/20/19 05:14 77 96/52 L 09/20/19 04:59 78 16 86/48 L 93 L 09/20/19 03:59 96.9 F 149 H 17 133/87 94 L Date Exam was Performed: 09/20/19 Time Exam was Performed: 07:35 *Q Meaningful Use (ADM) - VTE Risk Assess *Q Each Risk Factor Represents 1 Point: Obesity ( BMI > 25 kg/m2) Total Score 1 Point Risk Factors: 1 Each Risk Factor Represents 2 Points: Age 60 - 74 Years Total Score 2 Point Risk Factors: 2 Each Risk Factor Represents 3 Points: None Total Score 3 Point Risk Factors: 0 Each Risk Factor Represents 5 Points: None Total Score 5 Point Risk Factors: 0 Venous Thromboembolism Risk Factor Score *Q: 3 - Problem List (1) Atrial fibrillation with rapid ventricular response SNOMED Code(s): 285524041883293 ICD Code: I48.91 - UNSPECIFIED ATRIAL FIBRILLATION Status: Acute Current Visit: Yes (2) Atrial flutter with rapid ventricular response SNOMED Code(s): 7484270, 2288857 ICD Code: I48.92 - UNSPECIFIED ATRIAL FLUTTER Status: Acute Current Visit : No Problem List Initiated/Reviewed/Updated: Yes Orders Last 24hrs: Active Orders 24 hr Category Date Time Status Patient Status Manage Transfer [TRANSFER] Routine ADT 09/20/19 07:11 Ordered Cardiac Monitoring [RC] .As Directed Care 09/20/19 04:12 Active EKG Documentation Completion [RC] ASDIRECTED Care 09/20/19 04:13 Active Peripheral IV Care [RC] . DIRECTED Care 09/20/19 04:13 Active Diltiazem [Cardizem] 100 mg Med 09/20/19 04:15 Active Sodium Chloride 0.9% [Normal Saline] 100 ml IV TITRATE Sodium Chloride 0.9% [Normal Saline] 1,000 ml Med 09/20/19 04:30 Active IV ASDIRECTED Sodium Chloride 0.9% [Normal Saline] 1,000 ml Med 09/20/19 06:45 Active IV ASDIRECTED Sodium Chloride 0.9% [Saline Flush] Med 09/20/19 04:12 Active 10 ml FLUSH ASDIRECTED PRN Peripheral IV Insertion Adult [OM.PC] Stat Oth 09/20/19 04:12 Ordered Resuscitation Status Routine Resus Stat 09/20/19 07:13 Ordered EKG 12 Lead [EK] Stat Ther 09/20/19 04:13 Ordered Medication Orders Diltiazem HCl 100 mg/ Sodium (Chloride) 100 mls @ 5 mls/hr IV TITRATE MARTHA; Protocol Last Titration: 09/20/19 07:09 Dose: 10 mg/hr, 10 mls/hr Admin: 09/20/19 06:47 Dose: 5 mg/hr, 5 mls/hr Sodium Chloride (Normal Saline) 1,000 mls @ 125 mls/hr IV ASDIRECTED MARTHA Last Infusion: 09/20/19 05:02 Dose: 999 mls/hr Admin: 09/20/19 04:25 Dose: 125 mls/hr Sodium Chloride (Normal Saline) 1,000 mls @ 125 mls/hr IV ASDIRECTED MARTHA Last Admin: 09/20/19 06:47 Dose: 125 mls/hr Sodium Chloride (Saline Flush) 10 ml FLUSH ASDIRECTED PRN PRN Reason: Keep Vein Open Last Admin: 09/20/19 04:30 Dose: 10 ml Assessment/Plan Comment:: ASSESSMENT AND PLAN ATRIAL FIBRILLATION/FLUTTER WITH RAPID VENTRICULAR RESPONSE-this is her fourth episode over the past 2-1/2 months. She is tolerating this well with no symptoms of chest pain or pressure or shortness of breath or lightheadedness. Discussed with cardiology, she will be transferred for further subspecialty evaluation and management. -Continue current dose of metoprolol -Diltiazem 20 mg IV given in ED -Continuous infusion of diltiazem to start at 5 mg/h -Continue Eliquis -Transfer to [facility] MAINTENANCE ISSUES -DVT prophylaxis; current therapy with Eliquis should provide adequate DVT prophylaxis -GI prophylaxis; not indicated -Fonseca catheter; not indicated -Nutrition; regular diet -Nicotine dependence; not required PRIMARY CARE PROVIDER-Dr. Sharp - Mortality Measure Prognosis:: Good
== END 2019-09-20 08:30 ==
LOC: JP.ED 03:36
DX: I48.91 Unspecified atrial fibrillation (principal); E03.9 Hypothyroidism, unspecified; Z91.048 Other nonmedicinal substance allergy status; Z79.01 Long term (current) use of anticoagulants; Z79.899 Other long term (current) drug therapy
CPT/HCPCS: 36415; 80053; 84484; 85025; 93010; 96361; 96365; 96376; 99284; 99285; J3490; J7030; J7050

== ENCOUNTER 2019-10-14 10:04 | Emergency (ER) | payer MEDICARE, OTHER ==
[2019-10-14 10:30] VITALS: BP 96/53; PULSE 125
[2019-10-14] MEDS ORDERED: Diltiazem 25 MG/5 ML SDV IVPUSH ONE (10:42)
[2019-10-14] MEDS ORDERED: Sodium Chloride 0.9% 10 ML Syringe FLUSH PRN (10:42)
[2019-10-14] MEDS ORDERED: Diltiazem 100 MG in Sodium Chloride 0.9% 100 ML IV SCH (10:45)
--- NOTE | 2019-10-14 10:50 | EDM.PDOC ---
ED HPI GENERAL MEDICAL PROBLEM - General Chief Complaint: Cardiovascular Problem Stated Complaint: AFIB Time Seen by Provider: 10/14/19 10:44 Source of Information: Reports: Patient History Limitations: Reports: No Limitations - History of Present Illness INITIAL COMMENTS - FREE TEXT/NARRATIVE: pt arrived with a rapid heart rate and feels that she is back in afib. Pt was last seen in [place] and she was cardioverted in August. She has had Afib 5 times since the first of the year. She is being considered for a ablation. Onset: Today, Sudden Duration: Hour(s): Location: Reports: Chest Associated Symptoms: Reports: No Other Symptoms - Related Data Allergies Allergy/AdvReac Type Severity Reaction Status Date / Time adhesive Allergy Itching Verified 10/14/19 10:29 Home Meds: Home Meds Fish Oil/[place]-3 Fatty Acids [Fish Oil 1,000 MG] 1 tab PO DAILY 08/15/16 [ History] Lactobacillus Acidophilus [Probiotic] 1 tab PO DAILY 08/15/16 [History] Multivitamin [Multivitamins] 1 tab PO BID 08/15/16 [History] Ubiquinol 1 tab PO DAILY 08/15/16 [History] Apixaban [Eliquis] 5 mg PO BID 09/01/19 [History] Biotin 5 mg PO DAILY 09/01/19 [History] Calcium Carb, Citrate/Vit D3 [Calcium + D3 ER Tablet] 1 tab PO BID 09/01/19 [ History] Levothyroxine Sodium 1 tab PO DAILY 09/01/19 [History] Colostrum, Bovine [Colostrum] 1,000 mg PO DAILY 09/20/19 [History] Sotalol HCl [Sotalol] 1 tab PO BID 10/14/19 [History] Past Medical History HEENT History: Reports: None Cardiovascular History: Reports: Afib, Hypertension, Other (See Below) Other Cardiovascular History: 3rd episode since 2017,, cardioversion Gastrointestinal History: Reports: None Genitourinary History: Reports: None 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: Musculoskeletal History: Reports: Arthritis, Back Pain, Chronic Endocrine/Metabolic History: Reports: Hypothyroidism, Obesity/BMI 30+ Other Endocrine/Metabolic History: checks blood sugars for pre diabetes Hematologic History: Reports: Anticoagulation Therapy Oncologic (Cancer) History: Reports: Uterine - Infectious Disease History Infectious Disease History: Reports: Chicken Pox, Measles, Mumps - Past Surgical History Head Surgeries/Procedures: Reports: None HEENT Surgical History: Reports: Other (See Below) Cardiovascular Surgical History: Reports: None GI Surgical History: Reports: Appendectomy, Hernia, Abdominal Female Surgical History: Reports: Section, Hysterectomy Endocrine Surgical History: Reports: None Musculoskeletal Surgical History: Reports: Knee Replacement Oncologic Surgical History: Reports: None Dermatological Surgical History: Reports: None Social & Family History - Family History Family Medical History: Noncontributory - Tobacco Use Smoking Status *Q: Never Smoker Second Hand Smoke Exposure: No - Caffeine Use Caffeine Use: Reports: None - Recreational Drug Use Recreational Drug Use: No ED ROS GENERAL - Review of Systems Review Of Systems: See Below Constitutional: Reports: No Symptoms HEENT: Reports: No Symptoms Respiratory: Reports: No Symptoms Cardiovascular: Reports: Palpitations Endocrine: Reports: No Symptoms GI/Abdominal: Reports: No Symptoms : Reports: No Symptoms Musculoskeletal: Reports: No Symptoms Skin: Reports: No Symptoms ED EXAM, GENERAL - Physical Exam Exam: See Below Free Text/Narrative:: pt arrived in atrial fib with a rate of 137. She is not having chest pain and she is holding good vital signs. Exam Limited By: No Limitations General Appearance: Alert, No Apparent Distress, Anxious Ears: Normal TMs Nose: Normal Inspection Throat/Mouth: Normal Inspection Head: Atraumatic Neck: Normal Inspection Respiratory/Chest: No Respiratory Distress Cardiovascular: Irregularly Irregular, Other ( pt has atrial fib with a rate of 137. ) GI/Abdominal: Soft, Non-Tender (Female) Exam: Deferred Rectal (Female) Exam: Deferred Back Exam: Normal Inspection Extremities: Normal Inspection Neurological: Alert, Oriented, Normal Cognition Course - Vital Signs Last Recorded V/S: Last Vital Signs Temp 36.7 C 10/14/19 10:31 Pulse 125 H 10/14/19 10:31 Resp 16 10/14/19 10:31 BP 96/53 L 10/14/19 10:31 Pulse Ox 95 10/14/19 10:31 - Orders/Labs/Meds Orders: Active Orders 24 hr Category Date Time Status EKG Documentation Completion [RC] ASDIRECTED Care 10/14/19 10:34 Active EKG Documentation Completion [RC] ASDIRECTED Care 10/14/19 11:35 Active Diltiazem [Cardizem] 100 mg Med 10/14/19 10:45 Active Sodium Chloride 0.9% [Normal Saline] 100 ml IV TITRATE Sodium Chloride 0.9% [Saline Flush] Med 10/14/19 10:42 Active 10 ml FLUSH ASDIRECTED PRN Saline Lock Insert [OM.PC] Routine Oth 10/14/19 10:42 Ordered EKG 12 Lead [EK] Routine Ther 10/14/19 10:34 Ordered EKG 12 Lead [EK] Routine Ther 10/14/19 11:35 Ordered Medication Orders Diltiazem HCl 100 mg/ Sodium (Chloride) 100 mls @ 5 mls/hr IV TITRATE MARTHA; Protocol Sodium Chloride (Saline Flush) 10 ml FLUSH ASDIRECTED PRN PRN Reason: Keep Vein Open Last Admin: 10/14/19 11:05 Dose: 10 ml Labs: Laboratory Tests 10/14/19 10/14/19 10/14/19 Range/Units 10:52 10:52 10:52 WBC 6.3 (4.5-11.0) K/uL RBC 5.26 (3.30-5.50) M/uL Hgb 15.5 H (12.0-15.0) g/dL Hct 47.0 (36.0-48.0) % MCV 89 (80-98) fL MCH 30 (27-31) pg MCHC 33 (32-36) % Plt Count 225 (150-400) K/uL Neut % (Auto) 64 (36-66) % Lymph % (Auto) 23 L (24-44) % [place] % (Auto) 9 H (2-6) % Eos % (Auto) 4 (2-4) % Baso % (Auto) 1 (0-1) % Sodium 137 L (140-148) mmol/L Potassium 4.1 (3.6-5.2) mmol/L Chloride 104 (100-108) mmol/L Carbon Dioxide 26 (21-32) mmol/L Anion Gap 11.1 (5.0-14.0) mmol/L BUN 19 H (7-18) mg/dL Creatinine 0.9 (0.6-1.0) mg/dL Est Cr Clr Drug Dosing 53.67 mL/min Estimated GFR (MDRD) > 60 (>60) Glucose 137 H (74-106) mg/dL Calcium 9.7 (8.5-10.1) mg/dL Total Bilirubin 0.5 (0.2-1.0) mg/dL AST 18 (15-37) U/L ALT 32 (12-78) U/L Alkaline Phosphatase 88 (46-116) U/L Troponin I < 0.017 (0.000-0.056) ng/mL Total Protein 7.1 (6.4-8.2) g/dL Albumin 3.7 (3.4-5.0) g/dL Globulin 3.4 (2.3-3.5) g/dL Albumin/Globulin Ratio 1.1 L (1.2-2.2) TSH, Ultra Sensitive (0.358-3.740) uIU/mL 10/14/19 Range/Units 10:52 WBC (4.5-11.0) K/uL RBC (3.30-5.50) M/uL Hgb (12.0-15.0) g/dL Hct (36.0-48.0) % MCV (80-98) fL MCH (27-31) pg MCHC (32-36) % Plt Count (150-400) K/uL Neut % (Auto) (36-66) % Lymph % (Auto) (24-44) % [place] % (Auto) (2-6) % Eos % (Auto) (2-4) % Baso % (Auto) (0-1) % Sodium (140-148) mmol/L Potassium (3.6-5.2) mmol/L Chloride (100-108) mmol/L Carbon Dioxide (21-32) mmol/L Anion Gap (5.0-14.0) mmol/L BUN (7-18) mg/dL Creatinine (0.6-1.0) mg/dL Est Cr Clr Drug Dosing mL/min Estimated GFR (MDRD) (>60) Glucose (74-106) mg/dL Calcium (8.5-10.1) mg/dL Total Bilirubin (0.2-1.0) mg/dL AST (15-37) U/L ALT (12-78) U/L Alkaline Phosphatase (46-116) U/L Troponin I (0.000-0.056) ng/mL Total Protein (6.4-8.2) g/dL Albumin (3.4-5.0) g/dL Globulin (2.3-3.5) g/dL Albumin/Globulin Ratio (1.2-2.2) TSH, Ultra Sensitive 1.014 (0.358-3.740) uIU/mL Meds: Medications Generic Name Dose Route Start Last Admin Trade Name Freq PRN Reason Stop Dose Admin Diltiazem HCl 100 mg/ Sodium 100 mls @ 5 mls/hr 10/14/19 10:45 Chloride IV TITRATE MARTHA Protocol 5 MG/HR Sodium Chloride 10 ml 10/14/19 10:42 10/14/19 11:05 Saline Flush FLUSH 10 ml ASDIRECTED PRN Administration Keep Vein Open Discontinued Medications Generic Name Dose Route Start Last Admin Trade Name Freq PRN Reason Stop Dose Admin Diltiazem HCl 10 mg 10/14/19 10:42 Diltiazem IVPUSH 10/14/19 10:43 ONETIME ONE Fentanyl Confirm 10/14/19 11:23 Sublimaze Administered 10/14/19 11:24 Dose 100 mcg .ROUTE .STK-MED ONE Midazolam HCl Confirm 10/14/19 11:23 Versed 1 Mg/Ml Administered 10/14/19 11:24 Dose 2 mg .ROUTE .STK-MED ONE Propofol Confirm 10/14/19 11:22 Diprivan 20 Ml Administered 10/14/19 11:23 Dose 200 mg .ROUTE .STK-MED ONE - Re-Assessments/Exams Free Text/Narrative Re-Assessment/Exam: 10/14/19 10:[address] Dos Santos Cardiology--EP was consulted and she was advised the pt be cardioverted here today and she will get ahold of the pt soon regarding a ablation. Dr Dos Santos is with [facility]. 10/14/19 10:57 10/14/19 11:29 pt was found to have normal lab work. Dr Kaur was consulted and will cardiovert the pt. 10/14/19 12:05 pt was shocked twice in order to get rhythm to hold. Her meds were reviewed and Departure - Departure Time of Disposition: 12:13 Disposition: Home, Self-Care 01 Condition: Fair Clinical Impression: Atrial fibrillation, Encounter for cardioversion procedure Referrals: PCP,None [Primary Care Provider] - Forms: ED Department Discharge Care Plan Goals: await the call from Dr Clark for a ablation. If she does not call today regarding scheduling call [facility] tomorrow, continue same meds. Sepsis Event Note - Evaluation Sepsis Screening Result: No Definite Risk - Focused Exam Vital Signs: Vital Signs Temp Pulse Resp BP Pulse Ox 10/14/19 10:31 36.7 C 125 H 16 96/53 L 95 10/14/19 10:29 36.7 C 125 H 16 96/53 L 95 Date Exam was Performed: 10/14/19 Time Exam was Performed: 12:16 - My Orders Last 24 Hours: My Active Orders 10/14/19 10:34 EKG Documentation Completion [RC] ASDIRECTED EKG 12 Lead [EK] Routine 10/14/19 10:42 Sodium Chloride 0.9% [Saline Flush] 10 ml FLUSH ASDIRECTED PRN Saline Lock Insert [OM.PC] Routine 10/14/19 10:45 Diltiazem [Cardizem] 100 mg Sodium Chloride 0.9% [Normal Saline] 100 ml IV TITRATE 10/14/19 11:35 EKG Documentation Completion [RC] ASDIRECTED EKG 12 Lead [EK] Routine - Assessment/Plan Last 24 Hours: My Active Orders 10/14/19 10:34 EKG Documentation Completion [RC] ASDIRECTED EKG 12 Lead [EK] Routine 10/14/19 10:42 Sodium Chloride 0.9% [Saline Flush] 10 ml FLUSH ASDIRECTED PRN Saline Lock Insert [OM.PC] Routine 10/14/19 10:45 Diltiazem [Cardizem] 100 mg Sodium Chloride 0.9% [Normal Saline] 100 ml IV TITRATE 10/14/19 11:35 EKG Documentation Completion [RC] ASDIRECTED EKG 12 Lead [EK] Routine
[2019-10-14] MEDS ORDERED: Propofol 200 MG/20 ML SDV ONE (11:22)
[2019-10-14] MEDS ORDERED: fentaNYL 100 MCG/2 ML SDV ONE (11:23)
[2019-10-14] MEDS ORDERED: Midazolam 1 MG/ML 2 ML SDV ONE (11:23)
--- NOTE | 2019-10-14 12:33 | PCM.OPNOTE ---
- General Post-Op/Procedure Note Date of Surgery/Procedure: 10/14/19 Operative Procedure(s): Electrical cardioversion Pre Op Diagnosis: Paroxysmal atrial fibrillation with rapid ventricular response Post-Op Diagnosis: Same Anesthesia Technique: Moderate Sedation Primary Surgeon: Trino Kaur Anesthesia Provider: Jaylon Hargrove Complications: None Condition: Good Free Text/Narrative:: Ms. Acharya is a 69-year-old woman who presented to the emergency department with rapid heart rate and on evaluation was found to have atrial fibrillation/ flutter with rapid ventricular response. She has had a recent history of recurrent episodes of paroxysmal atrial fibrillation with rapid ventricular response. She was most recently hospitalized in [place] and was started on antidysrhythmic therapy with sotalol. She had done fairly well for about 3 weeks but this morning she developed redness of her rapid irregular rhythm. Recurrence was reviewed with her EP evidence specialist, they recommended electrical cardioversion and then will follow up with the patient in the next few days. She is tolerating the rapid rate well and denies any symptoms of chest pain shortness of breath. Risks and goals of the procedure were reviewed with the patient and she gave informed consent to proceed. IV sedation was provided by Mr. Hargrove from the anesthesia service. After adequate sedation was achieved patient was cardioverted to sinus rhythm using 200 J of energy. Unfortunately she quickly went back into atrial fibrillation, she was cardioverted a second time again using 200 J of energy delivered in a synchronized fashion. This time she converted to sinus rhythm and remained in sinus rhythm following the cardioversion. She was monitored until she had recovered from IV sedation and will be discharged home. She will continue her outpatient medications and should receive a phone call from her EP evidence specialist in the next day or 2. She will return to the emergency department if she notes recurrent irregular rapid heart rhythm.
== END 2019-10-14 12:24 | disposition home or self-care (01) ==
LOC: JP.ED 10:04
DX: I48.91 Unspecified atrial fibrillation (principal); I10 Essential (primary) hypertension; E03.9 Hypothyroidism, unspecified; E66.9 Obesity, unspecified; Z68.41 Body mass index [BMI] 40.0-44.9, adult; Z91.048 Other nonmedicinal substance allergy status; Z79.899 Other long term (current) drug therapy; Z79.01 Long term (current) use of anticoagulants
CPT/HCPCS: 36415; 80053; 84443; 84484; 85025; 93005; 99285; J2704; 93010; 99283; J2250; J3010

== ENCOUNTER 2020-05-25 20:22 | Emergency (ER) | payer MEDICARE, OTHER ==
[2020-05-25] MEDS ORDERED: Metoprolol Tartrate 50 MG Tab PO ONE (20:50)
--- NOTE | 2020-05-25 20:50 | EDM.PDOC ---
ED HPI GENERAL MEDICAL PROBLEM - General Chief Complaint: Neurological Problem Stated Complaint: CONFUSED,STARTED AN HR AGO Time Seen by Provider: 05/25/20 20:49 Source of Information: Reports: Patient, Family, Old Records, RN History Limitations: Reports: No Limitations - History of Present Illness INITIAL COMMENTS - FREE TEXT/NARRATIVE: 69 yo female is brought in from home by her for some acute disorientation that was noticed about 1830h today. Sammy has a pHx of HTN and afib. She cannot recall if she took her medication today. The says the only thing off with his is her memory of recent and past events. She is oriented to location, person, but not time. She does not know today is Karla juan. She cannot tell me when she last had a BP check or what it was at that time. She does recall meals today. She doesn't recall they had houseguests today. She denies a MARTINEZ or chest pain. No recent trauma or illness. Onset: Today, Sudden Onset Date: 05/25/20 Onset Time: 18:30 Duration: Hour(s):, Constant Location: Reports: Head Quality: Reports: Other (pain denied) Severity: Moderate Improves with: Reports: None Worsens with: Reports: Other (unknown) Context: Reports: Other (See HPI) Associated Symptoms: Reports: Confusion. 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 (see below) (none) - Related Data Allergies Allergy/AdvReac Type Severity Reaction Status Date / Time adhesive Allergy Itching Verified 05/25/20 20:35 Home Meds: Home Meds Fish Oil/[place]-3 Fatty Acids [Fish Oil 1,000 MG] 1 tab PO DAILY 08/15/16 [History] Lactobacillus Acidophilus [Probiotic] 1 tab PO DAILY 08/15/16 [History] Multivitamin [Multivitamins] 1 tab PO BID 08/15/16 [History] Ubiquinol 1 tab PO DAILY 08/15/16 [History] Apixaban [Eliquis] 5 mg PO BID 09/01/19 [History] Calcium Carb, Citrate/Vit D3 [Calcium + D3 ER Tablet] 1 tab PO BID 09/01/19 [History] Levothyroxine Sodium 1 tab PO DAILY 09/01/19 [History] Colostrum, Bovine [Colostrum] 1,000 mg PO DAILY 09/20/19 [History] Sotalol HCl [Sotalol] 1 tab PO BID 10/14/19 [History] Metoprolol Succinate 25 mg PO DAILY 05/25/20 [History] Past Medical History HEENT History: Reports: None Cardiovascular History: Reports: Afib, Hypertension, Other (See Below) Other Cardiovascular History: 3rd episode since 2017,, cardioversion Gastrointestinal History: Reports: None Genitourinary History: Reports: 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: Musculoskeletal History: Reports: Arthritis, Back Pain, Chronic Endocrine/Metabolic History: Reports: Hypothyroidism, Obesity/BMI 30+ Other Endocrine/Metabolic History: checks blood sugars for pre diabetes Hematologic History: Reports: Anticoagulation Therapy Oncologic (Cancer) History: Reports: Uterine - Infectious Disease History Infectious Disease History: Reports: Chicken Pox, Measles, Mumps - Past Surgical History Head Surgeries/Procedures: Reports: None HEENT Surgical History: Reports: Other (See Below) Other HEENT Surgeries/Procedures: blood tuomor from forehead as a child Cardiovascular Surgical History: Reports: None, Cardiac Ablation GI Surgical History: Reports: Appendectomy, Hernia, Abdominal Female Surgical History: Reports: Section, Hysterectomy Endocrine Surgical History: Reports: None Musculoskeletal Surgical History: Reports: Knee Replacement Other Musculoskeletal Surgeries/Procedures:: bilat knee replacements Oncologic Surgical History: Reports: None Dermatological Surgical History: Reports: None Social & Family History - Family History Family Medical History: No Pertinent Family History - Tobacco Use Tobacco Use Status *Q: Never Tobacco User - Caffeine Use Caffeine Use: Reports: None - Recreational Drug Use Recreational Drug Use: No ED ROS GENERAL - Review of Systems Review Of Systems: See Below Constitutional: Reports: No Symptoms HEENT: Reports: No Symptoms Respiratory: Reports: No Symptoms Cardiovascular: Reports: No Symptoms Endocrine: Reports: No Symptoms GI/Abdominal: Reports: No Symptoms : Reports: No Symptoms Musculoskeletal: Reports: No Symptoms Skin: Reports: No Symptoms Neurological: Reports: No Symptoms Psychiatric: Reports: No Symptoms ED EXAM, NEURO - Physical Exam Exam: See Below Exam Limited By: No Limitations General Appearance: Alert, WD/WN, No Apparent Distress, Obese Eye Exam: Bilateral Eye: EOMI, Normal Inspection, PERRL Ears: Normal External Exam, Normal Canal, Hearing Grossly Normal Nose: Normal Inspection, No Blood Throat/Mouth: Normal Inspection, Normal Lips, Normal Oropharynx, Normal Voice, No Airway Compromise Head Exam: Atraumatic, Normocephalic Neck: Normal Inspection Respiratory/Chest: No Respiratory Distress, Lungs Clear, Normal Breath Sounds, No Accessory Muscle Use Cardiovascular: Regular Rate, Rhythm, No Edema GI/Abdominal: Normal Bowel Sounds, Soft, Non-Tender, No Distention Neurological: Alert, Normal Mood/Affect, CN II-XII Intact, No Motor/Sensory Deficits. No: Oriented x 3 (oriented x 2-person and place only) Back Exam: Normal Inspection. No: CVA Tenderness (R), CVA Tenderness (L) Extremities: Normal Inspection, Normal Range of Motion, Non-Tender, No Pedal Edema Psychiatric: Normal Affect, Normal Mood Skin Exam: Warm, Dry, Intact, Normal Color, No Rash Course - Vital Signs Last Recorded V/S: Last Vital Signs Temp 35.7 C L 05/25/20 20:44 Pulse 68 05/25/20 21:57 Resp 16 05/25/20 20:44 BP 154/80 H 05/25/20 21:57 Pulse Ox 100 05/25/20 20:44 - Orders/Labs/Meds Orders: Active Orders 24 hr Category Date Time Status Cardiac Monitoring [RC] .As Directed Care 05/25/20 20:49 Active Labs: Laboratory Tests 05/25/20 05/25/20 05/25/20 Range/Units 20:48 21:04 21:04 WBC 8.7 (4.5-11.0) K/uL RBC 5.29 (3.30-5.50) M/uL Hgb 15.3 H (12.0-15.0) g/dL Hct 47.3 (36.0-48.0) % MCV 89 (80-98) fL MCH 29 (27-31) pg MCHC 32 (32-36) % Plt Count 244 (150-400) K/uL Sodium 141 (140-148) mmol/L Potassium 3.9 (3.6-5.2) mmol/L Chloride 102 (100-108) mmol/L Carbon Dioxide 29 (21-32) mmol/L Anion Gap 10.5 (5.0-14.0) mmol/L BUN 18 (7-18) mg/dL Creatinine 1.0 (0.6-1.0) mg/dL Est Cr Clr Drug Dosing 48.30 mL/min Estimated GFR (MDRD) 55 L (>60) Glucose 152 H (74-106) mg/dL Calcium 9.4 (8.5-10.1) mg/dL Troponin I 0.049 (0.000-0.056) ng/mL Urine Color Yellow (YELLOW) Urine Appearance Clear (CLEAR) Urine pH 7.0 (5.0-8.0) Ur Specific [place] 1.015 (1.008-1.030) Urine Protein Negative (NEGATIVE) mg/dL Urine Glucose (UA) Negative (NEGATIVE) mg/dL Urine Ketones Negative (NEGATIVE) mg/dL Urine Occult Blood Negative (NEGATIVE) Urine Nitrite Negative (NEGATIVE) Urine Bilirubin Negative (NEGATIVE) Urine Urobilinogen 0.2 (0.2-1.0) EU/dL Ur Leukocyte Esterase Negative (NEGATIVE) Urine RBC Not seen (0-5) Urine WBC 0-5 (0-5) Ur Epithelial Cells Rare Amorphous Sediment Not seen Urine Bacteria Not seen Urine Mucus Not seen Meds: Medications Discontinued Medications Generic Name Dose Route Start Last Admin Trade Name Freq PRN Reason Stop Dose Admin Lisinopril 20 mg 05/25/20 21:39 05/25/20 21:44 Prinivil PO 05/25/20 21:40 20 mg ONETIME ONE Administration Metoprolol Tartrate 50 mg 05/25/20 20:50 05/25/20 20:59 Lopressor PO 05/25/20 20:51 50 mg ONETIME ONE Administration - Radiology Interpretation Free Text/Narrative:: Head CT scan- IMPRESSION: No evidence of an acute intracranial hemorrhage, mass effect or loss of garcia- white differentiation. Mild chronic small vessel ischemic changes. Small age- indeterminate left thalamic lacunar infarcts. Correlate clinically and, if indicated, follow-up. Dictated by Teodoro Yarbrough MD @ 05/25/2020 9:27:[address] Results Date: 05/25/20 CT Results Time: 21:37 Departure - Departure Time of Disposition: 22:30 Disposition: Home, Self-Care 01 Condition: Fair Clinical Impression: Elevated blood sugar, Dissociative amnesia HTN (hypertension) Qualifiers: Hypertension type: essential hypertension Qualified Code(s): I10 - Essential (primary) hypertension - Discharge Information *PRESCRIPTION DRUG MONITORING PROGRAM REVIEWED*: Not Applicable *COPY OF PRESCRIPTION DRUG MONITORING REPORT IN PATIENT CRISTIAN: Not Applicable Referrals: Poli Sharp MD [Primary Care Provider] - Forms: ED Department Discharge Additional Instructions: Take lisinopril 20 mg at night starting tomorrow night. Increase your metoprolol succinate to 100 mg every morning starting tomorrow(take 4 of your 25 mg doses). Avoid salt or salty foods. Avoid concentrated sweets. See your doctor for recheck early next week, return if worse. Sepsis Event Note (ED) - Evaluation Sepsis Screening Result: No Definite Risk - Focused Exam Vital Signs: Vital Signs Temp Pulse Pulse Resp BP BP Pulse Ox 05/25/20 21:57 68 154/80 H 05/25/20 21:44 183/88 H 05/25/20 21:37 78 183/88 H 05/25/20 21:14 96 205/97 H 05/25/20 20:59 100 197/89 H 05/25/20 20:44 35.7 C L 95 16 197/89 H 100 - My Orders Last 24 Hours: My Active Orders 05/25/20 20:49 Cardiac Monitoring [RC] .As Directed - Assessment/Plan Last 24 Hours: My Active Orders 05/25/20 20:49 Cardiac Monitoring [RC] .As Directed
--- NOTE | 2020-05-25 21:28 | CRLCT ---
INDICATION: Confusion. Stroke protocol TECHNIQUE: CT head without contrast. COMPARISON: None available FINDINGS: The ventricles and sulci are within normal limits for the patient`s age. There is no mass effect or midline shift. White matter hypodensities are suggestive of mild chronic small vessel ischemic changes. There are small chronic and age indeterminate left thalamic lacunar infarcts. There is no loss of garcia-white differentiation. There is no evidence of an acute intracranial hemorrhage. No acute calvarial fracture is seen. The visualized paranasal sinuses are clear. There is apparent partial opacification of some mastoid tip air cells versus volume averaging. The visualized orbits are within normal limits. IMPRESSION: No evidence of an acute intracranial hemorrhage, mass effect or loss of garcia-white differentiation. Mild chronic small vessel ischemic changes. Small age-indeterminate left thalamic lacunar infarcts. Correlate clinically and, if indicated, follow-up. Dictated by Teodoro Yarbrough MD @ 05/25/2020 9:27:55 PM Please note that all CT scans at this facility use dose modulation, iterative reconstruction, and/or weight-based dosing when appropriate to reduce radiation dose to as low as reasonably achievable. Dictated by: Teodoro Yarbrough MD @ 05/25/2020 21:28:09 (Electronically Signed)
[2020-05-25] MEDS ORDERED: Lisinopril 10 MG Tab PO ONE ×2 (21:39→22:27)
[2020-05-25 21:58] VITALS: PULSE 68
[2020-05-25 22:37] VITALS: BP 176/75
== END 2020-05-25 22:47 | disposition home or self-care (01) ==
LOC: JP.ED 20:22
DX: I10 Essential (primary) hypertension (principal); R73.9 Hyperglycemia, unspecified; F44.0 Dissociative amnesia; E03.9 Hypothyroidism, unspecified; E66.9 Obesity, unspecified; Z68.41 Body mass index [BMI] 40.0-44.9, adult; I48.91 Unspecified atrial fibrillation; Z79.01 Long term (current) use of anticoagulants; Z79.899 Other long term (current) drug therapy; Z91.048 Other nonmedicinal substance allergy status
CPT/HCPCS: 36415; 70450; 80048; 81001; 84484; 85027; 99285; A9270

== ENCOUNTER 2021-07-13 18:14 | Emergency (ER) | payer MEDICARE, OTHER ==
[2021-07-13] MEDS ORDERED: Diltiazem 25 MG/5 ML SDV IVPUSH ONE (18:34)
[2021-07-13] MEDS ORDERED: Diltiazem 100 MG in Sodium Chloride 0.9% 100 ML IV SCH (18:45)
[2021-07-13] MEDS ORDERED: Adenosine 6 MG/2 ML SDV IVPUSH ONE (18:51)
[2021-07-13] MEDS ORDERED: Propofol 200 MG/20 ML SDV ONE (19:29)
[2021-07-13] MEDS ORDERED: Metoprolol Tartrate 25 MG Tab PO ONE (19:49)
[2021-07-13 21:27] VITALS: BP 133/76; PULSE 79
== END 2021-07-13 21:17 | disposition home or self-care (01) ==
LOC: JP.ED 18:14
DX: I48.92 Unspecified atrial flutter (principal); I48.91 Unspecified atrial fibrillation; E03.9 Hypothyroidism, unspecified; I10 Essential (primary) hypertension; E66.9 Obesity, unspecified; Z68.30 Body mass index [BMI] 30.0-30.9, adult; Z91.048 Other nonmedicinal substance allergy status; Z79.01 Long term (current) use of anticoagulants; Z79.82 Long term (current) use of aspirin; Z79.899 Other long term (current) drug therapy
CPT/HCPCS: 36415; 71045; 80053; 81001; 84443; 84484; 85025; 92960; 93005; 96374; 99285; A9270; J0153; J2704

== ENCOUNTER 2021-12-21 19:09 | Emergency (ER) | payer MEDICARE ==
[2021-12-21] MEDS ORDERED: Ibutilide 1 MG/10 ML Vial IVPUSH ONE (19:40)
[2021-12-21] MEDS ORDERED: Sodium Chloride 0.9% 10 ML Syringe FLUSH PRN (19:41)
[2021-12-21 20:24] LABS: ESTIMATED GFR 59 mL/min (>60); TROPONIN I HIGH SENSITIVITY 8.9 pg/mL (<=60.3)
[2021-12-21 21:29] VITALS: BP 147/79; PULSE 94
== END 2021-12-21 21:18 | disposition home or self-care (01) ==
LOC: JP.ED 19:09
DX: I48.92 Unspecified atrial flutter (principal); I10 Essential (primary) hypertension; E66.9 Obesity, unspecified; Z68.41 Body mass index [BMI] 40.0-44.9, adult; Z91.048 Other nonmedicinal substance allergy status; Z79.899 Other long term (current) drug therapy; Z79.01 Long term (current) use of anticoagulants; Z79.82 Long term (current) use of aspirin; Z90.710 Acquired absence of both cervix and uterus
CPT/HCPCS: 36415; 80053; 84443; 84484; 85025; 93005; 96374; 99285; J1742; J3490; 93010; 99284

== ENCOUNTER 2022-05-16 20:29 | Emergency (ER) | payer MEDICARE, OTHER ==
[2022-05-16] MEDS ORDERED: Sodium Chloride 0.9% 10 ML Syringe FLUSH PRN (20:31)
[2022-05-16] MEDS ORDERED: Ibutilide 1 MG/10 ML Vial IVPUSH ONE (20:36)
[2022-05-16 21:12] LABS: TROPONIN I HIGH SENSITIVITY 11.5 pg/mL (<=60.3)
[2022-05-16 21:24] VITALS: BP 119/66; PULSE 113
== END 2022-05-16 21:51 | disposition home or self-care (01) ==
LOC: JP.ED 20:29
DX: I48.0 Paroxysmal atrial fibrillation (principal); I10 Essential (primary) hypertension; E66.9 Obesity, unspecified; Z68.41 Body mass index [BMI] 40.0-44.9, adult; Z91.048 Other nonmedicinal substance allergy status; Z79.899 Other long term (current) drug therapy; Z79.01 Long term (current) use of anticoagulants; Z79.82 Long term (current) use of aspirin
CPT/HCPCS: 36415; 80048; 84443; 84484; 85025; 85610; 85730; 93005; 99285; J3490

== ENCOUNTER 2023-11-17 06:51 | Day surgery (SDC) | payer MEDICARE, OTHER ==
[2023-11-17] MEDS ORDERED: Propofol 200 MG/20 ML SDV ONE (07:30)
[2023-11-17] MEDS ORDERED: fentaNYL 50 MCG/ML SDV ONE (07:30)
[2023-11-17] MEDS: Lactated Ringers 1,000 ML IV SCH (07:31)
[2023-11-17 10:52] VITALS: BP 130/76; PULSE 50
== END 2023-11-17 11:00 | disposition home or self-care (01) ==
LOC: JP.SDS 06:51
PROVIDERS: ATTEND Family Medicine
DX: Z12.11 Encounter for screening for malignant neoplasm of colon (principal); R19.5 Other fecal abnormalities; K57.30 Diverticulosis of large intestine without perforation or abscess without bleeding; I10 Essential (primary) hypertension; E78.5 Hyperlipidemia, unspecified; I48.91 Unspecified atrial fibrillation; Z79.01 Long term (current) use of anticoagulants; Z79.899 Other long term (current) drug therapy
CPT/HCPCS: G0121; J2704; J3010; J7120

== ENCOUNTER 2024-01-05 06:53 | Day surgery (SDC) | payer MEDICARE, OTHER ==
[2024-01-05] MEDS ORDERED: fentaNYL 50 MCG/ML SDV ONE ×2 (07:18→07:19)
[2024-01-05] MEDS ORDERED: Propofol 200 MG/20 ML SDV ONE ×2 (07:18→08:48)
[2024-01-05] MEDS: Lactated Ringers 1,000 ML IV SCH (07:44)
[2024-01-05] MEDS ORDERED: Dextrose 5%-Lactated Ringers 1,000 ML IV SCH (08:30)
[2024-01-05 10:03] VITALS: BP 125/55; PULSE 55
== END 2024-01-05 10:07 | disposition home or self-care (01) ==
LOC: JP.SDS 06:53
PROVIDERS: ATTEND Family Medicine
DX: Z12.11 Encounter for screening for malignant neoplasm of colon (principal); R19.5 Other fecal abnormalities; D12.2 Benign neoplasm of ascending colon; D12.3 Benign neoplasm of transverse colon; K57.30 Diverticulosis of large intestine without perforation or abscess without bleeding; I10 Essential (primary) hypertension; E78.5 Hyperlipidemia, unspecified
CPT/HCPCS: 00811; 45385; 88305; J2704; J3010; J7120; 45380